=== PATIENT | male | born 1950 | race Hispanic/Latino ===

== ENCOUNTER → 2018-07-10 | Outpatient (CLI) | payer MEDICARE ==
[~2018-07-10] MED LIST: ALBUHFA IH; ASPI-1012 PO; ATOR40TA71 PO; CHOL100040 PO; DOXA2TAB2 PO; FAMO20TA8 PO; FENO54TA6 PO; FOLI0.8T22 PO; LEVO25TA54 PO; METO100T14 PO; SYMBICORT IH; TORS20TA4 PO
== END | disposition home or self-care (01) ==
LOC: SHCH 11:31
PROVIDERS: ATTEND Internal Medicine Cardiovascular Disease
DX: I50.31 Acute diastolic (congestive) heart failure (principal)
CPT/HCPCS: 93306

== ENCOUNTER → 2018-07-13 | Outpatient (CLI) | payer MEDICARE ==
[~2018-07-13] VITALS: Ht 175.3 cm; Wt 106.6 kg
[~2018-07-13] MED LIST changes: +REGADENOSON 0.4 MG/5 ML PF SYG IVP SCH
== END | disposition home or self-care (01) ==
LOC: SHCH 08:08
PROVIDERS: ATTEND Internal Medicine Cardiovascular Disease
DX: I50.31 Acute diastolic (congestive) heart failure (principal); I25.10 Atherosclerotic heart disease of native coronary artery without angina pectoris
CPT/HCPCS: 78452; 93017; 96374; A9500 ×2; J2785

== ENCOUNTER 2019-02-03 13:39 | Inpatient (IN) | payer MEDICARE ==
[~2019-02-03] VITALS: Ht 175.3 cm; Wt 95.3 kg
[~2019-02-03 13:39] MED LIST changes: -REGADENOSON 0.4 MG/5 ML PF SYG IVP SCH
[2019-02-03 14:24] LABS: APPEARANCE,URINE CLOUDY (CLEAR); BILIRUBIN,URINE NEGATIVE (NEGATIVE); COLOR,URINE YELLOW (YELLOW); GLUCOSE, URINE (UA) 250 mg/dL (NEGATIVE); KETONES,URINE NEGATIVE (NEGATIVE); LEUKOCYTE ESTERASE ,URINE NEGATIVE (NEGATIVE); NITRATE,URINE NEGATIVE (NEGATIVE); OCCULT BLOOD,URINE MODERATE (NEGATIVE); PROTEIN,URINE >=300 mg/dL (NEGATIVE); UROBILINOGEN,URINE 0.2 mg/dL (0.2-1.0)
[2019-02-03 14:30] LABS: BASOPHILS % (AUTO) 1.1 % (0.0-5.0); EOSINOPHILS % (AUTO) 2.6 % (0.0-8.0); HEMATOCRIT 41.1 % (42-54); LYMPHOCYTES % (AUTO) 14.9 % (21.0-51.0); MEAN CORPUSCULAR HEMOGLOBIN 31.5 pg (27.0-33.0); MEAN CORPUSCULAR VOLUME 95.4 fL (79-99); MONOCYTES % (AUTO) 8.5 % (3.0-13.0); NEUTROPHILS % (AUTO) 72.9 % (40.0-77.0); NUCLEATED RED BLOOD CELLS 0.1 % (0.0-0.19); PLATELET COUNT (AUTO) 180 K/uL (130-400); RED BLOOD CELL COUNT(AUTO) 4.31 MIL/uL (4.50-6.20); RED CELL DISTRIBUTION WIDTH 14.4 % (11.0-15.5); WHITE BLOOD COUNT (AUTO) 6.5 K/uL (4.8-10.8)
[2019-02-03 14:34] LABS: BACTERIA,URINE Few /HPF (None Seen)
[2019-02-03 14:35] LABS: HYALINE CASTS, URINE 26-50 /LPF (0-1 /LPF); MUCUS,URINE Few LPF (None Seen); SQUAMOUS EPITHELIAL CELL,UR Rare /HPF (0-2)
[2019-02-03 14:56] LABS: CREATININE 3.6 mg/dL (0.5-1.5); POTASSIUM 5.9 mmol/L (3.5-5.1)
[2019-02-03 15:00] LABS: ALBUMIN 1.4 g/dL (3.5-5.0); BILIRUBIN,TOTAL 0.3 mg/dL (0.2-1.0); TOTAL PROTEIN, SERUM 5.1 g/dL (6.0-8.3)
[2019-02-03] MEDS ORDERED: ALBUTEROL SULFATE 0.083% 2.5 MG/3 ML INH IH ONE (16:41)
[2019-02-03] MEDS ORDERED: FAMOTIDINE/PF 20 MG/2 ML VIAL IV ONE (18:25)
[2019-02-03] MEDS ORDERED: METOCLOPRAMIDE 5 MG TABLET PO PRN (18:30)
[2019-02-03] MEDS ORDERED: ONDANSETRON HCL 4 MG/2 ML VIAL IVP PRN (18:30)
[2019-02-03] MEDS ORDERED: GLUCAGON 1MG KIT 1 MG ML IM PRN (18:30)
[2019-02-03] MEDS ORDERED: DEXTROSE 50%-WATER 50 ML DISP.SYRIN IV PRN (18:30)
[2019-02-03] MEDS ORDERED: TEMAZEPAM 15 MG CAPSULE PO PRN (18:30)
[2019-02-03] MEDS ORDERED: SODIUM POLYSTYRENE SULFONATE 15 GM/60 ML ML ONE (20:44)
[2019-02-03] MEDS: INSULIN R PO SS1 SQ SCH (21:00)
[2019-02-03 23:00] VITALS: BP 179/97
[2019-02-04] VITALS (7 sets, daily range): BP systolic 140–177; BP diastolic 69–86
[2019-02-04] MEDS ORDERED: FUROSEMIDE 10 MG/ML 4ML VIAL ONE (01:34)
[2019-02-04 02:34] LABS: HEMATOCRIT 37.9 % (42-54); MEAN CORPUSCULAR HEMOGLOBIN 31.5 pg (27.0-33.0); MEAN CORPUSCULAR VOLUME 95.3 fL (79-99); PLATELET COUNT (AUTO) 173 K/uL (130-400); RED BLOOD CELL COUNT(AUTO) 3.98 MIL/uL (4.50-6.20); RED CELL DISTRIBUTION WIDTH 14.5 % (11.0-15.5); WHITE BLOOD COUNT (AUTO) 6.6 K/uL (4.8-10.8)
[2019-02-04 03:01] LABS: ALBUMIN 1.3 g/dL (3.5-5.0); BILIRUBIN,TOTAL 0.2 mg/dL (0.2-1.0); CREATININE 3.4 mg/dL (0.5-1.5); POTASSIUM 5.1 mmol/L (3.5-5.1); TOTAL PROTEIN, SERUM 4.7 g/dL (6.0-8.3)
[2019-02-04 03:03] LABS: B-TYPE NATRIURETIC PEPTIDE 268 pg/mL (0-100)
[2019-02-04] MEDS: INSULIN R PO SS1 SQ SCH ×4 (05:36→20:54)
[2019-02-04] MEDS ORDERED: FAMOTIDINE/PF 20 MG/2 ML VIAL IV SCH (09:00)
[2019-02-04] MEDS: FUROSEMIDE 10 MG/ML 4ML VIAL IV SCH ×2 (09:50→18:52)
--- NOTE | 2019-02-04 17:55 | NUR ---
INITIAL: Met w pt this afternoon to discuss dcp. Pt mentions that he lives w his spouse and son. Prior to admission he was independent w ambulation and requires assistance w ADLs. he has provider services 3hr/day. Pt states that he was still driving prior to admission. Per pt he feels safe and comfortable to return home at ok. CM to continue to follow and wait for Md recommendations. Addendum: 02/04/19 at 1757 by DAXA PEREYRA Amended: Links added.
[2019-02-04] MEDS ORDERED: CHOL100040 PO (21:50)
[2019-02-04] MEDS ORDERED: FOLI1TAB85 PO (21:50)
[2019-02-04] MEDS ORDERED: POTA20TA82 PO (21:50)
[2019-02-04] MEDS ORDERED: AMLO10TA7 PO (21:50)
[2019-02-04] MEDS ORDERED: HYDR-4153 PO (21:50)
[2019-02-04] MEDS ORDERED: FURO40TA5 PO (21:50)
--- NOTE | 2019-02-04 21:53 | NUR ---
MD DR NY came to see pt.
[2019-02-05] VITALS (7 sets, daily range): BP systolic 135–184; BP diastolic 67–121
[2019-02-05] MEDS: FUROSEMIDE 10 MG/ML 4ML VIAL IV SCH ×3 (04:21→18:52)
[2019-02-05 05:19] LABS: HEMATOCRIT 37.1 % (42-54); MEAN CORPUSCULAR HEMOGLOBIN 31.8 pg (27.0-33.0); MEAN CORPUSCULAR HGB CONC 33.2 g/dL (32.0-36.0); MEAN CORPUSCULAR VOLUME 95.9 fL (79-99); NUCLEATED RED BLOOD CELLS 0.1 % (0.0-0.19); PLATELET COUNT (AUTO) 160 K/uL (130-400); RED BLOOD CELL COUNT(AUTO) 3.87 MIL/uL (4.50-6.20); RED CELL DISTRIBUTION WIDTH 14.5 % (11.0-15.5); WHITE BLOOD COUNT (AUTO) 6.2 K/uL (4.8-10.8)
[2019-02-05 05:38] LABS: HEMOGLOBIN A1C 5.4 % (4.0-6.0)
[2019-02-05 05:46] LABS: ALBUMIN 1.2 g/dL (3.5-5.0); CREATININE 3.2 mg/dL (0.5-1.5); PHOSPHORUS 5.5 mg/dL (2.5-4.9); POTASSIUM 3.5 mmol/L (3.5-5.1); THYROID STIMULATING HORMONE 4.3 uIU/mL (0.36-3.74)
[2019-02-05] MEDS: INSULIN R PO SS1 SQ SCH ×4 (06:21→20:31)
[2019-02-05] MEDS: LEVOTHYROXINE 25 MCG TABLET PO SCH (06:21)
[2019-02-05] MEDS: ALBUTEROL SULFATE 0.083% 2.5 MG/3 ML INH IH SCH ×4 (06:28→23:47)
[2019-02-05] MEDS: BUDESONIDE 0.5 MG/2 ML INH IH SCH ×2 (06:28→18:51)
--- NOTE | 2019-02-05 08:00 | NUR ---
REVIEW CARE. WITH PT . HOB UP , DENIES ANY PAIN.. PT HAS HIS ARMS ,AND LEG WITH EDAMA NOTED .ELEVATED HIS ARMS AND LEG UP ON PILLOW FOR COMFORT CARE . DR GUERRERO AWARE OF HIS LABS ,BUN AND CR. LEVEL TODAY NO DIALYSIS WITH MEDICATION OF ZAROXOLYN 5 MG PO TO BE STARTED EDUCATION REGARDING MEDICATION GIVEN. . QUESTION ENCOURGE AND CALL LIGHT IN REACH .
[2019-02-05] MEDS: CHOLECALCIFEROL 1000 UNIT PO SCH (09:00)
[2019-02-05] MEDS ORDERED: SYMBICORT IH SCH (09:00)
[2019-02-05] MEDS: FENOFIBRATE 54 MG PO SCH (09:00)
[2019-02-05] MEDS ORDERED: HYDRALAZINE HCL 25 MG TABLET PO SCH (09:00)
--- NOTE | 2019-02-05 10:31 | NUR ---
TRIGGER. Pt IS A 68 YEAR OLD MALE ADMITTED SECONDARY TO ACUTE CHRONIC RENAL FAILURE. Pt WITH EDEMA AT THIS TIME. Pt TOLERATING CURRENT DIET. NO OVERT S/S OF ASPIRATION REPORTED AT THIS TIME. Addendum: 02/05/19 at 1041 by KATRINA COULTER, SPT ST Amended: Links added.
[2019-02-05] MEDS ORDERED: METOLAZONE 2.5 MG TABLET ONE (12:01)
[2019-02-05] MEDS: FAMOTIDINE 20MG TAB 20 MG TAB PO SCH (12:04)
[2019-02-05] MEDS: HYDRALAZINE HCL 25 MG TABLET PO SCH ×2 (12:04→20:30)
[2019-02-05] MEDS: ASPIRIN 325 MG TABLET PO SCH (12:04)
[2019-02-05] MEDS: METOPROLOL TARTRATE 50 MG TAB PO SCH ×3 (12:05→20:37)
[2019-02-05] MEDS: AMLODIPINE BESYLATE 5 MG TAB PO SCH (12:05)
[2019-02-05] MEDS: POTASSIUM CHLORIDE 20 MEQ ERTAB PO SCH ×2 (12:05→20:29)
[2019-02-05] MEDS: FOLIC ACID/VITAMIN B COMP W-C 1 MG CAP/TAB PO SCH (12:05)
[2019-02-05] MEDS ORDERED: METOLAZONE 2.5 MG TABLET PO SCH (13:00)
--- NOTE | 2019-02-05 16:54 | NUR ---
RD Notification Pt admitted for Acute chronic renal failure, Hx of CHF, HTN, Pt tolerating current Renal, 75gm CCD with no report of GI distress and PO intake at 100%. Recommend 30mL ProMod TID secondary to protein malnutrition. Pt LBM 02/03. Pt monitored labs: Cl 113, BUN 29, Cr 3.2, GFR 21, Ca 7.6, P 5.5, Alb 1.2. Noted Pt 2+ BLE/BUE pitting edema; Recommend 1200mL Fluid Restriction. RD to continue to monitor. Please notify RD as additional nutrition concerns arise. Thank you. Addendum: 02/05/19 at [address] RD Amended: Links added.
[2019-02-05] MEDS: DOXAZOSIN MESYLATE 2 MG TABLET PO SCH (20:30)
[2019-02-05] MEDS: ATORVASTATIN CALCIUM 40 MG TABLET PO SCH (20:30)
[2019-02-06 03:00] VITALS: BP 153/78
[2019-02-06] MEDS: FUROSEMIDE 10 MG/ML 4ML VIAL IV SCH ×2 (05:11→09:36)
[2019-02-06] MEDS: LEVOTHYROXINE 25 MCG TABLET PO SCH (05:11)
[2019-02-06 05:16] LABS: HEMATOCRIT 32.5 % (42-54); MEAN CORPUSCULAR HEMOGLOBIN 31.5 pg (27.0-33.0); MEAN CORPUSCULAR VOLUME 92.7 fL (79-99); PLATELET COUNT (AUTO) 164 K/uL (130-400); RED BLOOD CELL COUNT(AUTO) 3.51 MIL/uL (4.50-6.20); RED CELL DISTRIBUTION WIDTH 14.4 % (11.0-15.5); WHITE BLOOD COUNT (AUTO) 5.6 K/uL (4.8-10.8)
[2019-02-06 05:25] LABS: CREATININE 3.3 mg/dL (0.5-1.5); POTASSIUM 3.6 mmol/L (3.5-5.1)
[2019-02-06 05:42] LABS: ALBUMIN 1.1 g/dL (3.5-5.0); BILIRUBIN,DIRECT 0.1 mg/dL (0.0-0.3); BILIRUBIN,TOTAL 0.3 mg/dL (0.2-1.0); TOTAL PROTEIN, SERUM 4.2 g/dL (6.0-8.3)
[2019-02-06 05:43] LABS: BASOPHILS % (MANUAL) 2 % (0-2); EOSINOPHILS % (MANUAL) 6 % (1-6); LYMPHOCYTES % (MANUAL) 14 % (22-44); MAN.DIFF COMMENT-IMPRESSION MANUAL DIFFERENTIAL; MONOCYTES % (MANUAL) 14 % (2-9); SEGMENTED NEUTROPHILS % 64 % (40-70)
[2019-02-06] MEDS: INSULIN R PO SS1 SQ SCH ×4 (06:07→20:40)
[2019-02-06] MEDS: ALBUTEROL SULFATE 0.083% 2.5 MG/3 ML INH IH SCH ×4 (06:18→22:55)
--- NOTE | 2019-02-06 06:26 | NUR ---
EDEMA Pt cont with pitting edema to bilateral upper and lower extremeties.Denies pain or sob.
[2019-02-06] MEDS: BUDESONIDE 0.5 MG/2 ML INH IH SCH ×2 (06:32→18:08)
[2019-02-06 07:00] VITALS: BP 150/61
[2019-02-06] MEDS: ASPIRIN 325 MG TABLET PO SCH (07:58)
[2019-02-06] MEDS: POTASSIUM CHLORIDE 20 MEQ ERTAB PO SCH ×2 (07:59→20:37)
[2019-02-06] MEDS: METOPROLOL TARTRATE 50 MG TAB PO SCH ×3 (07:59→20:47)
[2019-02-06] MEDS: METOLAZONE 2.5 MG TABLET PO SCH (07:59)
[2019-02-06] MEDS: FAMOTIDINE 20MG TAB 20 MG TAB PO SCH (08:00)
[2019-02-06] MEDS: FOLIC ACID/VITAMIN B COMP W-C 1 MG CAP/TAB PO SCH (08:07)
[2019-02-06] MEDS: CHOLECALCIFEROL 1000 UNIT PO SCH (08:07)
[2019-02-06] MEDS: AMLODIPINE BESYLATE 5 MG TAB PO SCH (08:07)
[2019-02-06] MEDS: FENOFIBRATE 54 MG PO SCH (08:07)
[2019-02-06] MEDS: HYDRALAZINE HCL 25 MG TABLET PO SCH ×3 (08:07→20:37)
[2019-02-06] MEDS ORDERED: METOLAZONE 2.5 MG TABLET PO SCH (09:00)
[2019-02-06 11:00] VITALS: BP 155/70
[2019-02-06] MEDS ORDERED: PHARMACY COMMUNICATION MISC SCH (11:15)
[2019-02-06] MEDS ORDERED: COMPOUND IV MISC 1 EACH IVSOLN MISC PRN (11:30)
--- NOTE | 2019-02-06 11:38 | NUR ---
Reviewed labs, treatment plan and Murguia's request for strict Intake and output and Bumex drip with Miya Fernandez NP for benchmark. Received verbal order for spaulding catheter placement for accurate intake and output.
[2019-02-06] MEDS: BUMETANIDE 0.25 MG/ML 10 ML 40 ML IV SCH ×2 (12:34→19:12)
[2019-02-06 16:00] VITALS: BP 148/81
--- NOTE | 2019-02-06 17:32 | NUR ---
Dr. Murguia contacted to clarify orders for Lasix, Zaroxlyn and Bumex drip. Per Dr. Murguia, discontinue Lasix, continue with Zaroxlyn and Bumex drip at 1 mg/hr.
[2019-02-06 19:00] VITALS: BP 142/73
[2019-02-06] MEDS: ATORVASTATIN CALCIUM 40 MG TABLET PO SCH (20:36)
[2019-02-06] MEDS: DOXAZOSIN MESYLATE 2 MG TABLET PO SCH (20:37)
[2019-02-06 23:00] VITALS: BP 151/87
[2019-02-07] VITALS (7 sets, daily range): BP systolic 127–145; BP diastolic 72–83
--- NOTE | 2019-02-07 02:05 | NUR ---
DIURESE Pt voiding per urinal,cont on Bumex drip,coy well.Swelling is less to both arms and legs.Denies sob.
--- NOTE | 2019-02-07 04:12 | NUR ---
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
[2019-02-07 04:34] LABS: BASOPHILS % (AUTO) 0.8 % (0.0-5.0); EOSINOPHILS % (AUTO) 9.6 % (0.0-8.0); HEMATOCRIT 34.4 % (42-54); LYMPHOCYTES % (AUTO) 18.3 % (21.0-51.0); MEAN CORPUSCULAR HEMOGLOBIN 31.8 pg (27.0-33.0); MEAN CORPUSCULAR VOLUME 93.4 fL (79-99); MONOCYTES % (AUTO) 12.9 % (3.0-13.0); NEUTROPHILS % (AUTO) 58.4 % (40.0-77.0); PLATELET COUNT (AUTO) 153 K/uL (130-400); RED BLOOD CELL COUNT(AUTO) 3.69 MIL/uL (4.50-6.20); RED CELL DISTRIBUTION WIDTH 14.4 % (11.0-15.5); WHITE BLOOD COUNT (AUTO) 5.9 K/uL (4.8-10.8)
--- NOTE | 2019-02-07 04:41 | NUR ---
INSPECTOR AND UNLOADER Apple Romano Derrick Worker called back,she gave order for Tylenol.
[2019-02-07 04:44] LABS: CREATININE 3.2 mg/dL (0.5-1.5); POTASSIUM 3.1 mmol/L (3.5-5.1)
[2019-02-07] MEDS ORDERED: ACETAMINOPHEN 325 MG TAB PO PRN (04:45)
[2019-02-07] MEDS ORDERED: BUDESONIDE 0.5 MG/2 ML INH IH ONE (05:56)
[2019-02-07] MEDS ORDERED: IPRATROPIUM/ALBUTEROL SULFATE 3 ML SOLUTION IH ONE (05:56)
[2019-02-07] MEDS: ALBUTEROL SULFATE 0.083% 2.5 MG/3 ML INH IH SCH ×4 (06:08→23:46)
[2019-02-07] MEDS: BUDESONIDE 0.5 MG/2 ML INH IH SCH ×2 (06:17→19:17)
[2019-02-07] MEDS: LEVOTHYROXINE 25 MCG TABLET PO SCH (06:37)
[2019-02-07] MEDS: INSULIN R PO SS1 SQ SCH ×4 (06:38→21:00)
[2019-02-07] MEDS ORDERED: POTASSIUM CHLORIDE 10MEQ/100ML 10 MEQ/100 ML ML IV SCH (08:30)
[2019-02-07] MEDS: CHOLECALCIFEROL 1000 UNIT PO SCH (09:00)
[2019-02-07] MEDS: FENOFIBRATE 54 MG PO SCH (09:00)
[2019-02-07] MEDS: POTASSIUM CHLORIDE 20 MEQ ERTAB PO SCH ×2 (09:54→21:00)
[2019-02-07] MEDS: FOLIC ACID/VITAMIN B COMP W-C 1 MG CAP/TAB PO SCH (09:54)
[2019-02-07] MEDS: ASPIRIN 325 MG TABLET PO SCH (09:55)
[2019-02-07] MEDS: METOLAZONE 2.5 MG TABLET PO SCH (09:55)
[2019-02-07] MEDS: AMLODIPINE BESYLATE 5 MG TAB PO SCH (09:55)
[2019-02-07] MEDS: HYDRALAZINE HCL 25 MG TABLET PO SCH ×3 (09:55→22:14)
[2019-02-07] MEDS: FAMOTIDINE 20MG TAB 20 MG TAB PO SCH (09:56)
[2019-02-07] MEDS: METOPROLOL TARTRATE 50 MG TAB PO SCH ×2 (09:56→22:14)
[2019-02-07] MEDS ORDERED: SODIUM CHLORIDE 0.9% 0 ML IV ONE (15:34)
--- NOTE | 2019-02-07 16:49 | NUR ---
CM Note: [facility] pending ins auth and acceptance CM met with pt and spouse discussed MD recommendations for placement, pt and spouse agreeable. Pt signed JUDY for [facility]. Faxed order, clinicals, PT, and [facility], confirmation received. Spoke to Charissa will come eval pt. Pt pending ins auth and acceptance. EMS form filled out, pending to be faxed w/current date, primary nurse to call [facility] once pt ready to DC. Primary nurse aware. CM to cont to follow up.
[2019-02-07] MEDS ORDERED: POTASSIUM CHLORIDE 10% ELIXIR 20 MEQ/15 ML UDCUP PO PRN (17:15)
[2019-02-07] MEDS ORDERED: LIDOCAINE HCL-MPF 1% 2ML VIAL IV PRN (17:15)
[2019-02-07] MEDS ORDERED: POTASSIUM CHLORIDE 20MEQ/100ML 100 ML IV PRN (17:15)
[2019-02-07] MEDS: BUMETANIDE 0.25 MG/ML 10 ML 40 ML IV SCH (17:32)
[2019-02-07] MEDS: POTASSIUM CHLORIDE 20 MEQ ERTAB PO PRN ×3 (18:33→22:13)
[2019-02-07] MEDS: DOXAZOSIN MESYLATE 2 MG TABLET PO SCH (22:13)
[2019-02-07] MEDS: ATORVASTATIN CALCIUM 40 MG TABLET PO SCH (22:13)
[2019-02-08] MEDS: BUMETANIDE 0.25 MG/ML 10 ML 40 ML IV SCH ×3 (02:22→22:05)
[2019-02-08 04:00] VITALS: BP 152/70
[2019-02-08 04:54] LABS: EOSINOPHILS % (AUTO) 8.9 % (0.0-8.0); HEMATOCRIT 35.6 % (42-54); LYMPHOCYTES % (AUTO) 15.6 % (21.0-51.0); MEAN CORPUSCULAR HEMOGLOBIN 31.7 pg (27.0-33.0); MEAN CORPUSCULAR HGB CONC 33.9 g/dL (32.0-36.0); MEAN CORPUSCULAR VOLUME 93.4 fL (79-99); MONOCYTES % (AUTO) 13.3 % (3.0-13.0); NEUTROPHILS % (AUTO) 61.2 % (40.0-77.0); PLATELET COUNT (AUTO) 167 K/uL (130-400); RED BLOOD CELL COUNT(AUTO) 3.81 MIL/uL (4.50-6.20); RED CELL DISTRIBUTION WIDTH 14.4 % (11.0-15.5); WHITE BLOOD COUNT (AUTO) 6.1 K/uL (4.8-10.8)
[2019-02-08 05:07] LABS: CREATININE 3.3 mg/dL (0.5-1.5); POTASSIUM 3.1 mmol/L (3.5-5.1)
[2019-02-08] MEDS: POTASSIUM CHLORIDE 20 MEQ ERTAB PO PRN (05:41)
[2019-02-08] MEDS: ALBUTEROL SULFATE 0.083% 2.5 MG/3 ML INH IH SCH ×4 (06:20→23:23)
[2019-02-08] MEDS: BUDESONIDE 0.5 MG/2 ML INH IH SCH ×2 (06:29→18:27)
[2019-02-08] MEDS: LEVOTHYROXINE 25 MCG TABLET PO SCH (06:53)
[2019-02-08 07:00] VITALS: BP 121/77
[2019-02-08] MEDS: INSULIN R PO SS1 SQ SCH ×4 (07:30→21:00)
[2019-02-08] MEDS: FENOFIBRATE 54 MG PO SCH (09:00)
[2019-02-08] MEDS: CHOLECALCIFEROL 1000 UNIT PO SCH (09:00)
--- NOTE | 2019-02-08 09:30 | NUR ---
DR. NY IN TO SEE PT. WILL CONTINUE BUMEX DRIP AT SAME RATE.
[2019-02-08] MEDS: METOLAZONE 2.5 MG TABLET PO SCH (09:49)
[2019-02-08] MEDS: FAMOTIDINE 20MG TAB 20 MG TAB PO SCH (09:49)
[2019-02-08] MEDS: FOLIC ACID/VITAMIN B COMP W-C 1 MG CAP/TAB PO SCH (09:49)
[2019-02-08] MEDS: ASPIRIN 325 MG TABLET PO SCH (09:49)
[2019-02-08] MEDS: METOPROLOL TARTRATE 50 MG TAB PO SCH ×2 (09:50→22:04)
[2019-02-08] MEDS: AMLODIPINE BESYLATE 5 MG TAB PO SCH (09:50)
[2019-02-08] MEDS: HYDRALAZINE HCL 25 MG TABLET PO SCH ×3 (09:51→21:00)
[2019-02-08] MEDS: POTASSIUM CHLORIDE 20 MEQ ERTAB PO SCH ×3 (09:51→22:03)
[2019-02-08 11:00] VITALS: BP 116/70
--- NOTE | 2019-02-08 14:50 | NUR ---
RD Follow Up Note Pt tolerating Current Diet order with no report of GI distress and Great PO at 100%. Noted Pt remains with moderate fluid retention (BLE 2+ pitting edema/BUE 3+ pitting edema) on 1200mL Fluid restriction as per EMR. and low K+ levels, receiving KCl supplementation. Pt LBM 02/07/19. Pt monitored labs: K 3.1, BUN 32, Cr 3.3, GFR 20, Ca 7/9. Alb 1.1. RD to continue to monitor. RD to continue to monitor. Please notify RD as nutritional concerns arise. Thank you. Addendum: 02/08/19 at [address] Amended: Links added.
[2019-02-08 16:00] VITALS: BP 154/70
--- NOTE | 2019-02-08 18:00 | NUR ---
SITTING IN CHAIR, FEELING BETTER, STATES EDEMA HAS DECREASED A LOT. PLAN IS TO BE DISCHARGED TO [facility] [place].
[2019-02-08 20:00] VITALS: BP 153/84
[2019-02-08] MEDS: DOXAZOSIN MESYLATE 2 MG TABLET PO SCH (22:03)
[2019-02-08] MEDS: ATORVASTATIN CALCIUM 40 MG TABLET PO SCH (22:04)
--- NOTE | 2019-02-08 23:58 | NUR ---
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
[2019-02-09] VITALS (7 sets, daily range): BP systolic 123–171; BP diastolic 65–86
--- NOTE | 2019-02-09 00:12 | NUR ---
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
[2019-02-09 05:03] LABS: BASOPHILS % (AUTO) 0.8 % (0.0-5.0); EOSINOPHILS % (AUTO) 8.9 % (0.0-8.0); HEMATOCRIT 33.6 % (42-54); LYMPHOCYTES % (AUTO) 19.3 % (21.0-51.0); MEAN CORPUSCULAR HEMOGLOBIN 31.2 pg (27.0-33.0); MEAN CORPUSCULAR HGB CONC 33.8 g/dL (32.0-36.0); MEAN CORPUSCULAR VOLUME 92.4 fL (79-99); MONOCYTES % (AUTO) 15.1 % (3.0-13.0); NEUTROPHILS % (AUTO) 55.9 % (40.0-77.0); PLATELET COUNT (AUTO) 174 K/uL (130-400); RED BLOOD CELL COUNT(AUTO) 3.63 MIL/uL (4.50-6.20); RED CELL DISTRIBUTION WIDTH 14.5 % (11.0-15.5); WHITE BLOOD COUNT (AUTO) 5.6 K/uL (4.8-10.8)
[2019-02-09 05:31] LABS: ALBUMIN 1.1 g/dL (3.5-5.0); CREATININE 3.6 mg/dL (0.5-1.5); PHOSPHORUS 5.5 mg/dL (2.5-4.9); POTASSIUM 3.2 mmol/L (3.5-5.1)
[2019-02-09] MEDS: BUDESONIDE 0.5 MG/2 ML INH IH SCH ×2 (06:15→18:16)
[2019-02-09] MEDS: ALBUTEROL SULFATE 0.083% 2.5 MG/3 ML INH IH SCH ×4 (06:15→23:22)
[2019-02-09] MEDS: LEVOTHYROXINE 25 MCG TABLET PO SCH (06:16)
[2019-02-09] MEDS: INSULIN R PO SS1 SQ SCH ×4 (06:16→21:00)
[2019-02-09] MEDS: POTASSIUM CHLORIDE 20 MEQ ERTAB PO SCH ×3 (09:00→23:21)
[2019-02-09] MEDS: CHOLECALCIFEROL 1000 UNIT PO SCH (09:00)
[2019-02-09] MEDS: FENOFIBRATE 54 MG PO SCH (09:00)
[2019-02-09] MEDS: AMLODIPINE BESYLATE 5 MG TAB PO SCH (10:38)
[2019-02-09] MEDS: METOLAZONE 2.5 MG TABLET PO SCH (10:39)
[2019-02-09] MEDS: FAMOTIDINE 20MG TAB 20 MG TAB PO SCH (10:39)
[2019-02-09] MEDS: HYDRALAZINE HCL 25 MG TABLET PO SCH ×3 (10:40→23:21)
[2019-02-09] MEDS: ASPIRIN 325 MG TABLET PO SCH (10:40)
[2019-02-09] MEDS: FOLIC ACID/VITAMIN B COMP W-C 1 MG CAP/TAB PO SCH (10:40)
[2019-02-09] MEDS ORDERED: POTASSIUM CHLORIDE 10MEQ/100ML 10 MEQ/100 ML ML IV SCH (11:30)
--- NOTE | 2019-02-09 15:49 | NUR ---
HOSPICE Sw contacted by CM. Pt has now agreed to dialysis after Dr Murguia spoke to him. Per CM, no need to see pt regarding hospice
--- NOTE | 2019-02-09 16:00 | NUR ---
cm note received call from judith that [facility] approved, however, pt with new orders for HD
[2019-02-09] MEDS: ATORVASTATIN CALCIUM 40 MG TABLET PO SCH (23:21)
[2019-02-09] MEDS: DOXAZOSIN MESYLATE 2 MG TABLET PO SCH (23:21)
[2019-02-10] VITALS (13 sets, daily range): BP systolic 112–179; BP diastolic 52–93
[2019-02-10 05:36] LABS: EOSINOPHILS % (AUTO) 9.7 % (0.0-8.0); HEMATOCRIT 36.3 % (42-54); LYMPHOCYTES % (AUTO) 20.1 % (21.0-51.0); MEAN CORPUSCULAR HEMOGLOBIN 31.4 pg (27.0-33.0); MEAN CORPUSCULAR HGB CONC 33.9 g/dL (32.0-36.0); MEAN CORPUSCULAR VOLUME 92.5 fL (79-99); MONOCYTES % (AUTO) 12.8 % (3.0-13.0); NEUTROPHILS % (AUTO) 56.4 % (40.0-77.0); PLATELET COUNT (AUTO) 209 K/uL (130-400); RED BLOOD CELL COUNT(AUTO) 3.93 MIL/uL (4.50-6.20); RED CELL DISTRIBUTION WIDTH 14.6 % (11.0-15.5)
[2019-02-10 05:41] LABS: PARTIAL THROMBOPLASTIN TIME 25.3 SEC (26.3-35.5); PROTHROMBIN TIME 10.5 SEC (9.6-11.6)
[2019-02-10 05:46] LABS: ALBUMIN 1.3 g/dL (3.5-5.0); CREATININE 3.4 mg/dL (0.5-1.5); POTASSIUM 3.1 mmol/L (3.5-5.1)
[2019-02-10] MEDS: INSULIN R PO SS1 SQ SCH ×4 (05:58→21:00)
[2019-02-10] MEDS: LEVOTHYROXINE 25 MCG TABLET PO SCH (05:59)
[2019-02-10] MEDS: ALBUTEROL SULFATE 0.083% 2.5 MG/3 ML INH IH SCH ×4 (06:19→23:20)
[2019-02-10] MEDS: BUDESONIDE 0.5 MG/2 ML INH IH SCH ×2 (06:19→18:03)
[2019-02-10] MEDS ORDERED: LIDOCAINE HCL 1% MDV 50ML VIAL ONE (08:05)
[2019-02-10] MEDS: POTASSIUM CHLORIDE 20 MEQ ERTAB PO SCH ×2 (09:00→23:07)
[2019-02-10] MEDS: AMLODIPINE BESYLATE 5 MG TAB PO SCH (09:00)
[2019-02-10] MEDS: CHOLECALCIFEROL 1000 UNIT PO SCH (09:00)
[2019-02-10] MEDS: HYDRALAZINE HCL 25 MG TABLET PO SCH ×3 (09:00→23:08)
[2019-02-10] MEDS: FENOFIBRATE 54 MG PO SCH (09:00)
--- NOTE | 2019-02-10 09:30 | NUR ---
PT S/P RIGHT PERMACATH PLACEMENT BY IR/CATHLAB. NO BLEEDING, PENDING DIALYSIS. DIALYSIS TEAM AWARE.
[2019-02-10] MEDS: FOLIC ACID/VITAMIN B COMP W-C 1 MG CAP/TAB PO SCH (10:48)
[2019-02-10] MEDS: ASPIRIN 325 MG TABLET PO SCH (10:48)
[2019-02-10] MEDS: FAMOTIDINE 20MG TAB 20 MG TAB PO SCH (10:48)
[2019-02-10] MEDS: METOLAZONE 2.5 MG TABLET PO SCH (10:48)
[2019-02-10] MEDS ORDERED: NITROGLYCERIN 0.4 MG SL TAB SL PRN (18:15)
[2019-02-10] MEDS ORDERED: 0.9% SODIUM CHLORIDE 1000 ML IV BAG IV PRN (18:15)
[2019-02-10] MEDS ORDERED: ACETAMINOPHEN 325 MG TAB PO PRN (18:15)
[2019-02-10] MEDS ORDERED: SODIUM CHLORIDE 0.9% 1000ML 1,000 ML IV PRN (18:15)
[2019-02-10] MEDS: DOXAZOSIN MESYLATE 2 MG TABLET PO SCH (23:06)
[2019-02-10] MEDS: ATORVASTATIN CALCIUM 40 MG TABLET PO SCH (23:07)
[2019-02-11 03:00] VITALS: BP 133/74
[2019-02-11 05:39] LABS: CREATININE 2.7 mg/dL (0.5-1.5); POTASSIUM 3.1 mmol/L (3.5-5.1)
[2019-02-11 05:49] LABS: BASOPHILS % (AUTO) 0.9 % (0.0-5.0); HEMATOCRIT 31.5 % (42-54); LYMPHOCYTES % (AUTO) 18.5 % (21.0-51.0); MEAN CORPUSCULAR HEMOGLOBIN 31.6 pg (27.0-33.0); MEAN CORPUSCULAR HGB CONC 34.2 g/dL (32.0-36.0); MEAN CORPUSCULAR VOLUME 92.5 fL (79-99); MONOCYTES % (AUTO) 17.3 % (3.0-13.0); NEUTROPHILS % (AUTO) 54.3 % (40.0-77.0); PLATELET COUNT (AUTO) 159 K/uL (130-400); RED BLOOD CELL COUNT(AUTO) 3.41 MIL/uL (4.50-6.20); RED CELL DISTRIBUTION WIDTH 14.9 % (11.0-15.5)
[2019-02-11] MEDS: INSULIN R PO SS1 SQ SCH ×3 (06:47→20:42)
[2019-02-11] MEDS: ALBUTEROL SULFATE 0.083% 2.5 MG/3 ML INH IH SCH ×4 (06:53→23:04)
[2019-02-11] MEDS: BUDESONIDE 0.5 MG/2 ML INH IH SCH ×2 (06:53→18:15)
[2019-02-11] MEDS: LEVOTHYROXINE 25 MCG TABLET PO SCH (07:57)
[2019-02-11 08:00] VITALS: BP 125/79
[2019-02-11] MEDS: FENOFIBRATE 54 MG PO SCH (09:00)
[2019-02-11] MEDS: CHOLECALCIFEROL 1000 UNIT PO SCH (09:00)
[2019-02-11] MEDS: HYDRALAZINE HCL 25 MG TABLET PO SCH ×3 (09:50→20:44)
[2019-02-11] MEDS: FAMOTIDINE 20MG TAB 20 MG TAB PO SCH (09:51)
[2019-02-11] MEDS: METOLAZONE 2.5 MG TABLET PO SCH (09:51)
[2019-02-11] MEDS: ASPIRIN 325 MG TABLET PO SCH (09:51)
[2019-02-11] MEDS: FOLIC ACID/VITAMIN B COMP W-C 1 MG CAP/TAB PO SCH (09:51)
[2019-02-11] MEDS: POTASSIUM CHLORIDE 20 MEQ ERTAB PO SCH ×2 (09:51→20:45)
[2019-02-11] MEDS: AMLODIPINE BESYLATE 5 MG TAB PO SCH (09:52)
[2019-02-11 12:00] VITALS: BP 131/69
[2019-02-11 16:00] VITALS: BP 152/79
[2019-02-11 16:27] LABS: HEMATOCRIT 34.3 % (42-54)
[2019-02-11 16:45] LABS: ALBUMIN 1.3 g/dL (3.5-5.0); CREATININE 2.9 mg/dL (0.5-1.5)
[2019-02-11 16:46] LABS: HEMOGLOBIN A1C 5.7 % (4.0-6.0)
[2019-02-11 17:11] LABS: % IRON SATURATION 29.8 % (30-44)
--- NOTE | 2019-02-11 18:55 | NUR ---
[facility]: Discussed w pt and spouse order for outpt HD @ [facility]. Pt in agreement JUDY/PC consent signed. CM to f/u w referral pending lab and pending HD tx's.
[2019-02-11 19:00] VITALS: BP 170/83
[2019-02-11] MEDS: DOXAZOSIN MESYLATE 2 MG TABLET PO SCH (20:44)
[2019-02-11] MEDS: ATORVASTATIN CALCIUM 40 MG TABLET PO SCH (20:45)
[2019-02-11 23:00] VITALS: BP 150/85
[2019-02-12 03:00] VITALS: BP 164/89
[2019-02-12 05:38] LABS: BASOPHILS % (AUTO) 1.1 % (0.0-5.0); EOSINOPHILS % (AUTO) 13.2 % (0.0-8.0); HEMATOCRIT 31.2 % (42-54); LYMPHOCYTES % (AUTO) 16.3 % (21.0-51.0); MEAN CORPUSCULAR HEMOGLOBIN 31.9 pg (27.0-33.0); MEAN CORPUSCULAR HGB CONC 34.3 g/dL (32.0-36.0); MEAN CORPUSCULAR VOLUME 93.1 fL (79-99); MONOCYTES % (AUTO) 14.1 % (3.0-13.0); NEUTROPHILS % (AUTO) 55.3 % (40.0-77.0); PLATELET COUNT (AUTO) 144 K/uL (130-400); RED BLOOD CELL COUNT(AUTO) 3.35 MIL/uL (4.50-6.20); RED CELL DISTRIBUTION WIDTH 14.3 % (11.0-15.5); WHITE BLOOD COUNT (AUTO) 4.9 K/uL (4.8-10.8)
[2019-02-12 06:00] LABS: CREATININE 2.9 mg/dL (0.5-1.5); POTASSIUM 3.1 mmol/L (3.5-5.1)
[2019-02-12] MEDS: LEVOTHYROXINE 25 MCG TABLET PO SCH (06:21)
[2019-02-12] MEDS: INSULIN R PO SS1 SQ SCH ×4 (06:21→21:00)
[2019-02-12] MEDS: BUDESONIDE 0.5 MG/2 ML INH IH SCH ×2 (06:29→18:23)
[2019-02-12] MEDS: ALBUTEROL SULFATE 0.083% 2.5 MG/3 ML INH IH SCH ×4 (06:29→23:15)
[2019-02-12 08:00] VITALS: BP 175/86
[2019-02-12] MEDS: FAMOTIDINE 20MG TAB 20 MG TAB PO SCH (08:35)
[2019-02-12] MEDS: FOLIC ACID/VITAMIN B COMP W-C 1 MG CAP/TAB PO SCH (08:35)
[2019-02-12] MEDS: ASPIRIN 325 MG TABLET PO SCH (08:35)
[2019-02-12] MEDS: METOLAZONE 2.5 MG TABLET PO SCH (08:35)
[2019-02-12] MEDS: POTASSIUM CHLORIDE 20 MEQ ERTAB PO SCH ×2 (08:36→21:55)
[2019-02-12] MEDS: CHOLECALCIFEROL 1000 UNIT PO SCH (08:37)
[2019-02-12] MEDS: FENOFIBRATE 54 MG PO SCH (08:37)
[2019-02-12] MEDS: HYDRALAZINE HCL 25 MG TABLET PO SCH ×3 (09:00→21:56)
[2019-02-12] MEDS: AMLODIPINE BESYLATE 5 MG TAB PO SCH (09:00)
[2019-02-12 11:58] VITALS: BP 148/93
[2019-02-12] MEDS: HEPARIN SODIUM 5000UNIT/ML 1ML VIAL IJ PRN (14:51)
--- NOTE | 2019-02-12 15:27 | NUR ---
RD Follow up note Pt tolerating Renal Dialysis Diet Order, 1200mL Fluid restriction. Noted improved Edema as per EMR, Alb 1.3. Recommend to add 30ml ProMod TID. Pt LBM 02/12/19. Pt monitored labs: K 3.1, BUN 30, Cr 2.9, GFR 23, Ca 7.2, Fe 40, %Sat 29, Ferritin 573,Alb 1.3. RD to continue to monitor. Please notify RD as additional nutrition concerns arise. Thank you. Addendum: 02/12/19 at [address] Amended: Links added.
[2019-02-12 16:00] VITALS: BP_SYST 160; BP_SYST 166; BP_DIAS 106; BP_DIAS 67
--- NOTE | 2019-02-12 16:58 | NUR ---
jeffy note faxed request to setup OP HD at [facility], faxed info to admissions mainline [phone]. spoke to lamar at admissions and states has received info, and will send for review and approval, will let jeffy knowjoseph chair is obtained, informed request is for [facility], and plan for pt to go to [facility].
--- NOTE | 2019-02-12 17:06 | NUR ---
cm note spoke to Charissa at [facility], states auth for snf is still good until tuesday or tuesday, verify with her first because this pt has a long auth due to type of insurance, and should still be valid approval for the next few days.
[2019-02-12 19:00] VITALS: BP 158/99
[2019-02-12] MEDS: ATORVASTATIN CALCIUM 40 MG TABLET PO SCH (21:55)
[2019-02-12] MEDS: DOXAZOSIN MESYLATE 2 MG TABLET PO SCH (21:56)
[2019-02-12 23:00] VITALS: BP 132/68
[2019-02-13] VITALS (8 sets, daily range): BP systolic 122–189; BP diastolic 73–103
[2019-02-13] MEDS: INSULIN R PO SS1 SQ SCH ×4 (06:26→21:00)
[2019-02-13] MEDS: LEVOTHYROXINE 25 MCG TABLET PO SCH (06:26)
[2019-02-13 06:29] LABS: EOSINOPHILS % (AUTO) 12.4 % (0.0-8.0); HEMATOCRIT 31.6 % (42-54); LYMPHOCYTES % (AUTO) 16.4 % (21.0-51.0); MEAN CORPUSCULAR HEMOGLOBIN 31.5 pg (27.0-33.0); MEAN CORPUSCULAR VOLUME 92.6 fL (79-99); MONOCYTES % (AUTO) 14.4 % (3.0-13.0); NEUTROPHILS % (AUTO) 55.8 % (40.0-77.0); PLATELET COUNT (AUTO) 147 K/uL (130-400); RED BLOOD CELL COUNT(AUTO) 3.41 MIL/uL (4.50-6.20); RED CELL DISTRIBUTION WIDTH 14.3 % (11.0-15.5)
[2019-02-13 06:45] LABS: CREATININE 2.7 mg/dL (0.5-1.5); MAGNESIUM 1.9 mg/dL (1.80-2.40); POTASSIUM 3.4 mmol/L (3.5-5.1)
[2019-02-13] MEDS: ALBUTEROL SULFATE 0.083% 2.5 MG/3 ML INH IH SCH ×4 (06:51→23:14)
[2019-02-13] MEDS: BUDESONIDE 0.5 MG/2 ML INH IH SCH ×2 (07:01→18:20)
[2019-02-13 08:12] LABS: HEPATITIS Bs ANTIGEN SCREEN P Negative (Negative)
[2019-02-13] MEDS: METOLAZONE 2.5 MG TABLET PO SCH (08:59)
[2019-02-13] MEDS: ASPIRIN 325 MG TABLET PO SCH (09:00)
[2019-02-13] MEDS: FAMOTIDINE 20MG TAB 20 MG TAB PO SCH (09:00)
[2019-02-13] MEDS: FENOFIBRATE 54 MG PO SCH (09:00)
[2019-02-13] MEDS: FOLIC ACID/VITAMIN B COMP W-C 1 MG CAP/TAB PO SCH (09:00)
[2019-02-13] MEDS: AMLODIPINE BESYLATE 5 MG TAB PO SCH (09:00)
[2019-02-13] MEDS: HYDRALAZINE HCL 25 MG TABLET PO SCH ×3 (09:00→23:31)
[2019-02-13] MEDS: POTASSIUM CHLORIDE 20 MEQ ERTAB PO SCH ×2 (09:01→23:33)
[2019-02-13] MEDS: CHOLECALCIFEROL 1000 UNIT PO SCH (09:02)
--- NOTE | 2019-02-13 14:00 | NUR ---
DOSE OFV APRESOLINE 50 MG PO NOT GIVEN PENDING THE DIALSIS TX. HR OF 89, B/P OF 130/78
--- NOTE | 2019-02-13 16:37 | NUR ---
CM Note: [facility] auth good until . CM spoke to Charissa ramirez/Jan[facility], stated auth good up to , will need reauth after . Aware pt pending approval and chair time for [facility]. Primary nurse aware. CM to cont to follow up.
--- NOTE | 2019-02-13 16:38 | NUR ---
LARRY Note: [facility] pending ins auth and chair time. Spoke to Moira Olvera, pending still pending ins auth at this time. Primary nurse aware. CM to cont to follow up.
[2019-02-13] MEDS: HEPARIN SODIUM 5000UNIT/ML 1ML VIAL IJ PRN (20:06)
[2019-02-13] MEDS: DOXAZOSIN MESYLATE 2 MG TABLET PO SCH (23:31)
[2019-02-13] MEDS: ATORVASTATIN CALCIUM 40 MG TABLET PO SCH (23:32)
[2019-02-14 03:56] VITALS: BP 148/63
[2019-02-14 04:52] LABS: HEMATOCRIT 31.4 % (42-54); MEAN CORPUSCULAR HEMOGLOBIN 31.8 pg (27.0-33.0); MEAN CORPUSCULAR HGB CONC 34.2 g/dL (32.0-36.0); MEAN CORPUSCULAR VOLUME 92.8 fL (79-99); NUCLEATED RED BLOOD CELLS 0.1 % (0.0-0.19); PLATELET COUNT (AUTO) 122 K/uL (130-400); RED BLOOD CELL COUNT(AUTO) 3.38 MIL/uL (4.50-6.20); RED CELL DISTRIBUTION WIDTH 14.3 % (11.0-15.5); WHITE BLOOD COUNT (AUTO) 5.1 K/uL (4.8-10.8)
[2019-02-14 05:04] LABS: CREATININE 2.3 mg/dL (0.5-1.5); POTASSIUM 3.4 mmol/L (3.5-5.1)
[2019-02-14] MEDS: INSULIN R PO SS1 SQ SCH ×4 (06:26→21:00)
[2019-02-14] MEDS: ALBUTEROL SULFATE 0.083% 2.5 MG/3 ML INH IH SCH ×3 (06:53→18:33)
[2019-02-14] MEDS: BUDESONIDE 0.5 MG/2 ML INH IH SCH ×2 (07:02→18:33)
[2019-02-14] MEDS: LEVOTHYROXINE 25 MCG TABLET PO SCH (07:43)
[2019-02-14 08:34] VITALS: BP 170/97
[2019-02-14] MEDS: FOLIC ACID/VITAMIN B COMP W-C 1 MG CAP/TAB PO SCH (08:43)
[2019-02-14] MEDS: HYDRALAZINE HCL 25 MG TABLET PO SCH ×3 (08:44→21:23)
[2019-02-14] MEDS: ASPIRIN 325 MG TABLET PO SCH (08:44)
[2019-02-14] MEDS: POTASSIUM CHLORIDE 20 MEQ ERTAB PO SCH ×2 (08:44→21:23)
[2019-02-14] MEDS: FAMOTIDINE 20MG TAB 20 MG TAB PO SCH (08:44)
[2019-02-14] MEDS: METOLAZONE 2.5 MG TABLET PO SCH (08:44)
[2019-02-14] MEDS: AMLODIPINE BESYLATE 5 MG TAB PO SCH (08:44)
[2019-02-14] MEDS: CHOLECALCIFEROL 1000 UNIT PO SCH (08:45)
[2019-02-14] MEDS: FENOFIBRATE 54 MG PO SCH (08:45)
--- NOTE | 2019-02-14 10:26 | NUR ---
[facility] NOTE PER TAMMIE WITH MART[facility], HE WILL CALL [facility] TO CONFIRM THERE IS NOT PENDING PAPERWORK THEN WILL GIVE ME A RETURN CALL WITH [facility] CHAIR AND TIME.INFORMED TAMMIE OF PENDING DISCHARGE TODAY. WILL MONITOR FOR CALL BACK.
[2019-02-14 12:00] VITALS: BP 158/85
--- NOTE | 2019-02-14 14:07 | NUR ---
DAVITA UPDATE NOTE FOLLOWED UP TAMMIE FROM [facility], NO ANSWER. PER TRACY, PENDING AUTHORIZATION AND CHAIR DATE/TIME. PENDING DC, WILL MONITOR AND CALL BACK.
--- NOTE | 2019-02-14 14:35 | NUR ---
Received report from IZZY Thornton for transfer of care. Patient AAOx3, denies pain at this time, lying quietly in bed, spouse at bedside. Patient informed of transfer of care. Patient verbalized understanding. Treatment plan reviewed, pending placement for outpatient dialysis. Bed low, locked, call olivera within reach.
--- NOTE | 2019-02-14 15:23 | NUR ---
CM Note: Pt declined SNF wants to go home instead. CM met with pt as per request. Pt verbalized he changed his mind regarding placement. Prefers to go back home, family will be able to assist pt at home and transport pt to dialysis, requested to cancel placement. CM spoke to Charissa ramirez/[facility], cancelled referral per pt request. Primary nurse aware. Pt currently pending approval and chair time for [facility]. CM to cont to follow up.
[2019-02-14 17:48] VITALS: BP 132/73
[2019-02-14 20:04] VITALS: BP 153/90
[2019-02-14] MEDS: ATORVASTATIN CALCIUM 40 MG TABLET PO SCH (21:23)
[2019-02-14] MEDS: DOXAZOSIN MESYLATE 2 MG TABLET PO SCH (21:23)
[2019-02-14 23:56] VITALS: BP 142/74
[2019-02-15] MEDS: ALBUTEROL SULFATE 0.083% 2.5 MG/3 ML INH IH SCH ×2 (00:08→06:27)
[2019-02-15 03:59] VITALS: BP 151/85
[2019-02-15] MEDS: BUDESONIDE 0.5 MG/2 ML INH IH SCH (06:27)
[2019-02-15] MEDS: LEVOTHYROXINE 25 MCG TABLET PO SCH (06:35)
[2019-02-15] MEDS: INSULIN R PO SS1 SQ SCH (06:35)
[2019-02-15 08:00] VITALS: BP 155/77
--- NOTE | 2019-02-15 10:25 | NUR ---
VERNELL CONFIRMED CHAIR AT [facility] FOR TODAY IZZY CASTRO AND SQUADRON WORKER EM AWARE ORDER FOR DC RECD CLARIFIED METOPROLOL DOSE W MD COWART AND SCRIPT WRITTEN BY GEORGES. PT TO GO TO HD AT [facility] TODAY- CALLED MULTIPLE TIMES TO CONFIRM- NO ANSWER. RECD CONFIRMATION LETTER AND DISCUSSED WITH PT FAMILY LOOKING FOR A RIDE
--- NOTE | 2019-02-15 11:20 | NUR ---
Patient and given discharge instructions and verbalized understanding, iv removed with catheter intact and site dressed, telemetry monitoring unit notified of discharge and telemetry packet removed, follow-up appointments reviewed with patient and medications to continue. prescription given for metoprolol change
--- NOTE | 2019-02-15 15:00 | NUR ---
RECIEVED REPORT FROM BIENVENIDO AT 1435, PATIENT ALERT AND ORIENTATED X3 ON VIA NC INFUSING AT 2 LITERS , DENIES PAIN AT THIS TIME BLOOD SUGAR EVERY 4 HOURS , LUNGS CLEAR , B/P 127/67 P 98 R 20 TRANSFERS TO BED WILL CONTINUE TO MONITOR Addendum: 02/15/19 at 1549 by CLEMENT CASTRO RN RN PLACED ON WRONG PATIENT
== END 2019-02-15 11:15 | disposition home or self-care (01) | DRG 673 ==
LOC: EDH 13:39 → OBSVTOIN 18:00 → EDHIP 18:00 → 3DH 22:44 → 3BH 02-14 17:16
PROVIDERS: ADMIT Internal Medicine Pulmonary Disease; ATTEND Internal Medicine Pulmonary Disease
PROC: 0JH63XZ Insertion of Tunneled Vascular Access Device into Chest Subcutaneous Tissue and Fascia, Percutaneous Approach (ICD-10-PCS; principal; 2019-02-10)
PROC: 02H633Z Insertion of Infusion Device into Right Atrium, Percutaneous Approach (ICD-10-PCS; 2019-02-10)
PROC: B548ZZA Ultrasonography of Superior Vena Cava, Guidance (ICD-10-PCS; 2019-02-10)
PROC: 5A1D70Z Performance of Urinary Filtration, Intermittent, Less than 6 Hours Per Day (ICD-10-PCS; 2019-02-10)
PROC: 5A1D70Z Performance of Urinary Filtration, Intermittent, Less than 6 Hours Per Day (ICD-10-PCS; 2019-02-12)
PROC: 5A1D70Z Performance of Urinary Filtration, Intermittent, Less than 6 Hours Per Day (ICD-10-PCS; 2019-02-13)
DX: N17.9 Acute kidney failure, unspecified (principal); E43 Unspecified severe protein-calorie malnutrition; I13.2 Hypertensive heart and chronic kidney disease with heart failure and with stage 5 chronic kidney disease, or end stage renal disease; I50.30 Unspecified diastolic (congestive) heart failure; N04.9 Nephrotic syndrome with unspecified morphologic changes; N18.6 End stage renal disease; E11.22 Type 2 diabetes mellitus with diabetic chronic kidney disease; D64.9 Anemia, unspecified; E03.9 Hypothyroidism, unspecified; E78.5 Hyperlipidemia, unspecified; E87.6 Hypokalemia; I25.10 Atherosclerotic heart disease of native coronary artery without angina pectoris; J44.9 Chronic obstructive pulmonary disease, unspecified; T44.7X5A Adverse effect of beta-adrenoreceptor antagonists, initial encounter; T50.2X5A Adverse effect of carbonic-anhydrase inhibitors, benzothiadiazides and other diuretics, initial encounter; Z51.5 Encounter for palliative care; Z79.82 Long term (current) use of aspirin; Z79.899 Other long term (current) drug therapy; Z87.441 Personal history of nephrotic syndrome; Z87.891 Personal history of nicotine dependence; Z91.14 Patient's other noncompliance with medication regimen; Z91.15 Patient's noncompliance with renal dialysis; Z91.19 Patient's noncompliance with other medical treatment and regimen; Y92.89 Other specified places as the place of occurrence of the external cause
CPT/HCPCS: 36415; 36558; 71045; 74176; 77001; 80048; 80053; 80061; 80069; 80076; 81001; 82040; 82140; 82150; 82565; 82728; 82948; 83036; 83540; 83550; 83690; 83735; 83880; 84132; 84439; 84443; 84481; 84484; 84520; 85014; 85018; 85025; 85027; 85610; 85730; 86701; 86704; 86706; 87340; 87390; 87520; 90935; 93005; 93306; 93970; 93971; 94640; 94664; 97039; 99291; C1750; G0378; J1644; J1940; J3490; J7030

== ENCOUNTER 2020-05-05 07:53 | Day surgery (SDC) | payer OTHER, MEDICARE ==
[2020-04-30 13:24] LABS: EOSINOPHILS % (AUTO) 8.3 % (0.0-8.0); HEMATOCRIT 37.1 % (42-54); LYMPHOCYTES % (AUTO) 19.7 % (21.0-51.0); MEAN CORPUSCULAR HEMOGLOBIN 31.5 pg (27.0-33.0); MEAN CORPUSCULAR HGB CONC 33.2 g/dL (32.0-36.0); MEAN CORPUSCULAR VOLUME 94.9 fL (79-99); MONOCYTES % (AUTO) 10.9 % (3.0-13.0); NEUTROPHILS % (AUTO) 59.5 % (40.0-77.0); PLATELET COUNT (AUTO) 218 K/uL (130-400); RED BLOOD CELL COUNT(AUTO) 3.91 MIL/uL (4.50-6.20); RED CELL DISTRIBUTION WIDTH 13.3 % (11.0-15.5); WHITE BLOOD COUNT (AUTO) 7.1 K/uL (4.8-10.8)
[2020-04-30 13:37] LABS: ALBUMIN 2.5 g/dL (3.5-5.0); BILIRUBIN,TOTAL 0.2 mg/dL (0.2-1.0); CREATININE 6.5 mg/dL (0.5-1.5); POTASSIUM 4.3 mmol/L (3.5-5.1); TOTAL PROTEIN, SERUM 6.6 g/dL (6.0-8.3)
[2020-04-30 13:39] LABS: INR 1.06 (0.85-1.15); PROTHROMBIN TIME 11.3 SEC (9.6-11.6)
[2020-04-30 13:41] LABS: PARTIAL THROMBOPLASTIN TIME 24.6 SEC (26.3-35.5)
[2020-05-02 12:35] VITALS: BP 127/65
[~2020-05-05] VITALS: Ht 175.3 cm; Wt 90.7 kg
[2020-05-05] VITALS (16 sets, daily range): BP systolic 120–149; BP diastolic 59–78
[~2020-05-05 07:53] MED LIST changes: -ALBUHFA IH; +AMLO-258 PO; -FOLI0.8T22 PO; +FOLI1TAB85 PO; +FURO40TA5 PO; +HYDR-4153 PO; -METO100T14 PO; +POTA-202 PO; -TORS20TA4 PO
[2020-05-05] MEDS: CEFAZOLIN SODIUM 1 GM VIAL IVP SCH ×2 (09:23→10:52)
[2020-05-05] MEDS ORDERED: LIDOCAINE PF 100MG/5ML (2%) SYRINGE 5ML ONE ×2 (10:33→10:34)
[2020-05-05] MEDS ORDERED: NEOSTIGMINE 5MG/5ML SYR IV ONE (10:33)
[2020-05-05] MEDS ORDERED: PROPOFOL 10 MG/ML 20ML VIAL IV ONE (10:33)
[2020-05-05] MEDS ORDERED: GLYCOPYRROLATE 1 MG/5 ML SYRINGE ONE (10:33)
[2020-05-05] MEDS ORDERED: ROCURONIUM 10MG/1ML SYR 10 MG/ML ML ONE (10:33)
[2020-05-05] MEDS ORDERED: ONDANSETRON 4MG INJ ONE (10:33)
[2020-05-05] MEDS ORDERED: SUCCINYLCHOLINE CHLORIDE 20 MG/ML 10 ML VIAL ONE ×2 (10:33→10:34)
[2020-05-05] MEDS ORDERED: FENTANYL CITRATE PF 50 MCG/1 ML 2ML VIAL ONE (10:33)
[2020-05-05] MEDS ORDERED: DEXAMETHASONE SOD PHOSPHATE 10MG/ML 1ML VIAL ONE (10:33)
[2020-05-05] MEDS ORDERED: BUDE10.2 IH (10:55)
[2020-05-05] MEDS ORDERED: AMOX500C2 PO (10:55)
[2020-05-05] MEDS ORDERED: ALBUHFA IH (10:55)
[2020-05-05] MEDS ORDERED: METO-391 PO (10:55)
[2020-05-05] MEDS ORDERED: ATOR-2 PO (10:55)
[2020-05-05] MEDS ORDERED: EPHEDRINE SULFATE 50 MG/ML AMPULE ONE (11:05)
== END 2020-05-05 14:10 | disposition home or self-care (01) ==
LOC: DAH 07:53
PROVIDERS: ATTEND Student in an Organized Health Care Education/Training Program
DX: N18.6 End stage renal disease (principal); Z20.828 Contact with and (suspected) exposure to other viral communicable diseases; I12.0 Hypertensive chronic kidney disease with stage 5 chronic kidney disease or end stage renal disease; E78.00 Pure hypercholesterolemia, unspecified; Z99.2 Dependence on renal dialysis; Z86.73 Personal history of transient ischemic attack (TIA), and cerebral infarction without residual deficits; Z79.82 Long term (current) use of aspirin; Z79.899 Other long term (current) drug therapy; Z98.890 Other specified postprocedural states; Z82.49 Family history of ischemic heart disease and other diseases of the circulatory system; Z87.891 Personal history of nicotine dependence; Z83.3 Family history of diabetes mellitus; Z79.01 Long term (current) use of anticoagulants
CPT/HCPCS: 36415 ×2; 36821; 71045; 80053; 84132; 85025; 85610; 85730; 93005; A4215; A4216; A4221; A4222; A4223 ×2; A4649 ×2; A4663; A4930; A6207; A6260; C1713 ×2; G0168; J0330 ×2; J0690; J1100; J1644; J2001 ×2; J2405; J2704; J2710; J3010; J3490 ×2; U0003

== ENCOUNTER → 2020-06-09 | Outpatient (CLI) | payer OTHER, MEDICARE ==
[~2020-06-09] MED LIST changes: +ALBUHFA IH; +AMOX500C2 PO; +ATOR-2 PO; -ATOR40TA71 PO; +BUDE10.2 IH; -FAMO20TA8 PO; -FURO40TA5 PO; -HYDR-4153 PO; +METO-391 PO; -POTA-202 PO; -SYMBICORT IH
== END | disposition home or self-care (01) ==
LOC: RAH 15:05
PROVIDERS: ATTEND Student in an Organized Health Care Education/Training Program
DX: T88.8XXA Other specified complications of surgical and medical care, not elsewhere classified, initial encounter (principal); M79.89 Other specified soft tissue disorders
CPT/HCPCS: 76882

== ENCOUNTER → 2020-06-13 | Outpatient (CLI) | payer OTHER, MEDICARE ==
[2020-06-13 08:34] LABS: INR 1.03 (0.85-1.15); PROTHROMBIN TIME 11.2 SEC (9.6-11.6)
[2020-06-13 08:36] LABS: PARTIAL THROMBOPLASTIN TIME 24.1 SEC (26.3-35.5)
== END | disposition home or self-care (01) ==
LOC: RAH 07:38
PROVIDERS: ATTEND Student in an Organized Health Care Education/Training Program
DX: R22.31 Localized swelling, mass and lump, right upper limb (principal); Z86.2 Personal history of diseases of the blood and blood-forming organs and certain disorders involving the immune mechanism
CPT/HCPCS: 36415; 76882; 85610; 85730

== ENCOUNTER 2020-09-26 09:27 | Day surgery (SDC) | payer OTHER, MEDICARE ==
[2020-09-24 11:01] LABS: BASOPHILS % (AUTO) 1.2 % (0.0-5.0); EOSINOPHILS % (AUTO) 11.3 % (0.0-8.0); HEMATOCRIT 34.8 % (42-54); LYMPHOCYTES % (AUTO) 23.7 % (21.0-51.0); MEAN CORPUSCULAR HEMOGLOBIN 31.9 pg (27.0-33.0); MEAN CORPUSCULAR VOLUME 96.4 fL (79-99); MONOCYTES % (AUTO) 13.6 % (3.0-13.0); NEUTROPHILS % (AUTO) 49.9 % (40.0-77.0); PLATELET COUNT (AUTO) 171 K/uL (130-400); RED BLOOD CELL COUNT(AUTO) 3.61 MIL/uL (4.50-6.20); RED CELL DISTRIBUTION WIDTH 13.7 % (11.0-15.5)
[2020-09-24 11:03] LABS: INR 1.03 (0.85-1.15); PROTHROMBIN TIME 11.2 SEC (9.6-11.6)
[2020-09-24 11:04] LABS: PARTIAL THROMBOPLASTIN TIME 24.8 SEC (26.3-35.5)
[2020-09-24 11:06] LABS: CREATININE 5.7 mg/dL (0.5-1.5); POTASSIUM 4.6 mmol/L (3.5-5.1)
[~2020-09-26] VITALS: Ht 182.9 cm; Wt 89.6 kg
[2020-09-26 09:38] VITALS: BP 127/55
[2020-09-26] MEDS ORDERED: NACL 0.9% 1000ML 1,000 ML IV ONE (10:08)
[2020-09-26] MEDS ORDERED: HEPARIN 10,000 UNIT/10ML (1,000 UNIT/ML) VIAL ONE (14:43)
[2020-09-26] MEDS ORDERED: IODIXANOL 320 MG/ML 100 ML VIAL ONE (14:44)
[2020-09-26] MEDS ORDERED: SODIUM BICARB 50MEQ 50ML VIAL 50 ML ONE (14:47)
[2020-09-26 15:50] VITALS: BP 138/76
== END 2020-09-26 16:10 | disposition home or self-care (01) ==
LOC: DAH 09:27
PROVIDERS: ATTEND Student in an Organized Health Care Education/Training Program
DX: I12.0 Hypertensive chronic kidney disease with stage 5 chronic kidney disease or end stage renal disease (principal); N18.6 End stage renal disease; I82.210 Acute embolism and thrombosis of superior vena cava; E78.00 Pure hypercholesterolemia, unspecified; Z86.73 Personal history of transient ischemic attack (TIA), and cerebral infarction without residual deficits; Z79.82 Long term (current) use of aspirin; Z79.899 Other long term (current) drug therapy; Z98.890 Other specified postprocedural states; Z83.3 Family history of diabetes mellitus; Z87.891 Personal history of nicotine dependence; Z79.01 Long term (current) use of anticoagulants
CPT/HCPCS: 36415; 36901; 80048; 85025; 85610; 85730; A4215; A4216; A4221; A4222; A4223 ×3; A4606; A4663; C1757; C1769; C1894 ×2; J1644; J3490; J7030; Q9967

== ENCOUNTER 2021-05-18 10:52 | Day surgery (SDC) | payer OTHER, MEDICARE ==
[2021-05-15 14:31] LABS: BASOPHILS % (AUTO) 1.2 % (0.0-5.0); EOSINOPHILS % (AUTO) 17.8 % (0.0-8.0); HEMATOCRIT 34.7 % (42-54); LYMPHOCYTES % (AUTO) 19.8 % (21.0-51.0); MEAN CORPUSCULAR HEMOGLOBIN 31.5 pg (27.0-33.0); MEAN CORPUSCULAR HGB CONC 32.9 g/dL (32.0-36.0); MEAN CORPUSCULAR VOLUME 95.9 fL (79-99); MONOCYTES % (AUTO) 13.5 % (3.0-13.0); NEUTROPHILS % (AUTO) 47.3 % (40.0-77.0); PLATELET COUNT (AUTO) 150 K/uL (130-400); RED BLOOD CELL COUNT(AUTO) 3.62 MIL/uL (4.50-6.20); RED CELL DISTRIBUTION WIDTH 12.8 % (11.0-15.5)
[2021-05-15 14:40] LABS: POTASSIUM 5.2 mmol/L (3.5-5.1)
[2021-05-15 14:42] LABS: PROTHROMBIN TIME 10.9 SEC (9.6-11.6)
[2021-05-15 14:43] LABS: PARTIAL THROMBOPLASTIN TIME 25.2 SEC (26.3-35.5)
[2021-05-15 14:45] LABS: CREATININE 9.9 mg/dL (0.5-1.5)
[2021-05-18] MEDS ORDERED: 0.9% NACL 500ML IV.SOLN 500 ML IV ONE (11:38)
[2021-05-18] MEDS ORDERED: MIDAZOLAM HCL 1 MG/ML 2ML VIAL ONE (12:43)
[2021-05-18] MEDS ORDERED: HEPARIN 10,000 UNIT/10ML (1,000 UNIT/ML) VIAL ONE (12:43)
[2021-05-18] MEDS ORDERED: LIDOCAINE HCL 1% MDV 50ML VIAL ONE (12:44)
[2021-05-18] MEDS ORDERED: FENTANYL CITRATE PF 50 MCG/1 ML 2ML VIAL ONE (12:44)
[2021-05-18] MEDS ORDERED: IODIXANOL 320 MG/ML 100 ML VIAL ONE (13:00)
== END 2021-05-18 15:30 | disposition home or self-care (01) ==
LOC: DAH 10:52
PROVIDERS: ATTEND Student in an Organized Health Care Education/Training Program
DX: T82.858A Stenosis of other vascular prosthetic devices, implants and grafts, initial encounter (principal); Z20.822 Contact with and (suspected) exposure to COVID-19; I12.0 Hypertensive chronic kidney disease with stage 5 chronic kidney disease or end stage renal disease; N18.6 End stage renal disease; E78.00 Pure hypercholesterolemia, unspecified; Z86.73 Personal history of transient ischemic attack (TIA), and cerebral infarction without residual deficits; Z83.3 Family history of diabetes mellitus; Z82.49 Family history of ischemic heart disease and other diseases of the circulatory system; Z99.2 Dependence on renal dialysis; Z87.891 Personal history of nicotine dependence; Y83.2 Surgical operation with anastomosis, bypass or graft as the cause of abnormal reaction of the patient, or of later complication, without mention of misadventure at the time of the procedure
CPT/HCPCS: 36415; 36902; 80048; 85025; 85610; 85730; A4215; A4216; A4221; A4222; A4223 ×3; A4554; A4606; A4663; C1725 ×2; C1757; C1769 ×2; C1894 ×2; J1644 ×2; J3490; J7040; Q9967; 36905; J2250; J3010

== ENCOUNTER → 2023-02-14 | Outpatient (CLI) | payer OTHER, MEDICARE | END | disposition home or self-care (01) | LOC: RAH 13:36 | PROVIDERS: ATTEND Family Medicine | DX: K44.9 Diaphragmatic hernia without obstruction or gangrene (principal); R19.00 Intra-abdominal and pelvic swelling, mass and lump, unspecified site; N28.89 Other specified disorders of kidney and ureter; J44.9 Chronic obstructive pulmonary disease, unspecified; M47.815 Spondylosis without myelopathy or radiculopathy, thoracolumbar region; I25.10 Atherosclerotic heart disease of native coronary artery without angina pectoris; I70.90 Unspecified atherosclerosis; K57.90 Diverticulosis of intestine, part unspecified, without perforation or abscess without bleeding | CPT/HCPCS: 74176 ==

== ENCOUNTER 2023-07-06 06:06 | Day surgery (SDC) | payer MEDICARE ==
[~2023-07-06] VITALS: Ht 175.3 cm; Wt 81.2 kg
[2023-07-06] VITALS (11 sets, daily range): BP systolic 92–155; BP diastolic 53–76; PULSE 58–88; RESP 15–19
[2023-07-06] MEDS ORDERED: 0.9%NACL 1000ML 0 ML IV ONE (06:08)
[2023-07-06] MEDS ORDERED: ATOR10 PO (06:40)
[2023-07-06] MEDS ORDERED: ICOS1CAP2 PO (06:44)
[2023-07-06] MEDS ORDERED: LISI20TA24 PO (06:44)
[2023-07-06] MEDS ORDERED: SEVE800T27 PO (06:44)
[2023-07-06] MEDS ORDERED: MEMA14CA5 PO (06:44)
[2023-07-06] MEDS: 0.9% NACL 500ML IV.SOLN 500 ML IV ONE (06:52)
[2023-07-06] MEDS ORDERED: PROPOFOL 10 MG/ML 20ML VIAL IV ONE (07:52)
== END 2023-07-06 09:35 | disposition home or self-care (01) ==
LOC: ENDO 06:06 → DAH 06:06 → ENDO 09:35
PROVIDERS: ATTEND Internal Medicine Gastroenterology
DX: Z12.11 Encounter for screening for malignant neoplasm of colon (principal); K63.5 Polyp of colon; K64.0 First degree hemorrhoids; K57.30 Diverticulosis of large intestine without perforation or abscess without bleeding; J45.909 Unspecified asthma, uncomplicated; I12.0 Hypertensive chronic kidney disease with stage 5 chronic kidney disease or end stage renal disease; N18.6 End stage renal disease; E78.00 Pure hypercholesterolemia, unspecified; Z79.890 Hormone replacement therapy; Z99.2 Dependence on renal dialysis; Z79.82 Long term (current) use of aspirin; Z79.01 Long term (current) use of anticoagulants
CPT/HCPCS: 45385; J7040; J2704; A4620; A4215; A4223; A4657; A7002; A4222; A4221; A4663; J7030; A4606; J3490

== ENCOUNTER 2023-12-10 10:27 | Inpatient (IN) | payer MEDICARE, OTHER ==
[2023-12-10] VITALS (27 sets, daily range): BP systolic 111–139; BP diastolic 56–79; PULSE 84–113; RESP 13–32; TEMP 97.6–97.7; O2SAT 96–99
[~2023-12-10] VITALS: Ht 177.8 cm; Wt 72.6 kg
[~2023-12-10 10:27] MED LIST changes: -AMLO-258 PO; -AMOX500C2 PO; -ATOR-2 PO; +ATOR10 PO; -BUDE10.2 IH; -CHOL100040 PO; -FENO54TA6 PO; -FOLI1TAB85 PO; +ICOS1CAP2 PO; +LISI20TA24 PO; +MEMA14CA5 PO; -METO-391 PO; +SEVE800T27 PO
[2023-12-10 10:44] LABS: ABG BASE EXCESS 1.5 mmol/L (-2.0-3.0); ABG HCO3 28.3 mmol/L (21.0-28.0); ABG OXYGEN SATURATION 94.5 % (94.0-98.0); ABG PCO2 57 mmHg (35-48); ABG PH 7.317 (7.350-7.450); CARBON MONOXIDE 0.3 % (0.5-1.5); DEVICE COMMENT LR JAVI; HHb 5.5; PO2, ARTERIAL BG 85.9 mmHg (83.0-108.0); VENT MODE, BG 3LNC HOME O2 (ROOM AIR)
[2023-12-10 10:51] LABS: BASOPHILS # (AUTO) 0.08 K/uL (0.00-0.20); BASOPHILS % (AUTO) 0.6 % (0.0-5.0); EOSINOPHILS # (AUTO) 0.02 K/uL (0.00-0.70); EOSINOPHILS % (AUTO) 0.1 % (0.0-8.0); HEMATOCRIT 29.7 % (42-54); IMMATURE GRANULOCYTE ABSOLUTE 0.39 K/uL (0-1); LYMPHOCYTES # (AUTO) 0.5 K/uL (1.0-4.8); LYMPHOCYTES % (AUTO) 3.3 % (21.0-51.0); MEAN CORPUSCULAR HEMOGLOBIN 31.3 pg (27.0-33.0); MEAN CORPUSCULAR HGB CONC 31.3 g/dL (32.0-36.0); MONOCYTES # (AUTO) 0.9 K/uL (0.1-1.0); MONOCYTES % (AUTO) 6.1 % (3.0-13.0); NEUTROPHILS # (AUTO) 12.5 K/uL (1.8-7.7); NEUTROPHILS % (AUTO) 87.2 % (40.0-77.0); NUCLEATED RED BLOOD CELLS 0.3 % (0.0-0.19); PLATELET COUNT (AUTO) 218 K/uL (130-400); RED BLOOD CELL COUNT(AUTO) 2.97 MIL/uL (4.50-6.20); RED CELL DISTRIBUTION WIDTH 17.5 % (11.0-15.5); WHITE BLOOD COUNT (AUTO) 14.4 K/uL (4.8-10.8)
[2023-12-10] MEDS ORDERED: ICOS1CAP PO (10:53)
[2023-12-10] MEDS ORDERED: CALC-1009 PO (10:53)
[2023-12-10] MEDS ORDERED: METO25TA6 PO (10:53)
[2023-12-10] MEDS ORDERED: ALLO100T PO (10:53)
[2023-12-10 11:03] LABS: POTASSIUM 4.4 mmol/L (3.5-5.1)
[2023-12-10 11:07] LABS: ALBUMIN 2.3 g/dL (3.5-5.0); BILIRUBIN,DIRECT 0.3 mg/dL (0.0-0.3); BILIRUBIN,TOTAL 0.7 mg/dL (0.2-1.0); MAGNESIUM 2.2 mg/dL (1.80-2.40); TOTAL PROTEIN, SERUM 5.4 g/dL (6.0-8.3)
[2023-12-10] MEDS: acetaMINOPHEN 650 MG SUPPOSITORY RC ONE (11:22)
[2023-12-10] MEDS: 0.9%NACL 1000ML 2,448 ML IV ONE (11:22)
[2023-12-10] MEDS: ZOSYN 3.375GM+NS 50ML 50 ML IVPB ONE (11:22)
[2023-12-10] MEDS: VANCOMYCIN 1G/250ML KIT 250 ML IV ONE (11:22)
[2023-12-10 11:39] LABS: BAND NEUTROPHILS % (MANUAL) 7 % (0-2); LYMPHOCYTES % (MANUAL) 7 % (22-44); MAN.DIFF COMMENT-IMPRESSION MANUAL DIFFERENTIAL; MONOCYTES % (MANUAL) 9 % (2-9); PLATELET MORPHOLOGY COMMENT ADEQUATE; SEGMENTED NEUTROPHILS % 77 % (40-70); TOTAL CELLS COUNTED 100; WBC MORPHOLOGY CONSISTENT W/DIFF
[2023-12-10] MEDS ORDERED: VANCOMYCIN PROTOCOL PER PHARMACY IV SCH ×3 (12:00→12:30)
[2023-12-10] MEDS ORDERED: ZOSYN 3.375GM +NS 50ML IVPB SCH (12:00)
[2023-12-10] MEDS: NOREPINEPHRIN 4MG/NS 250ML 250 ML IV SCH (12:16)
[2023-12-10 13:08] LABS: INR 1.38 (0.85-1.15); PROTHROMBIN TIME 14.6 SEC (9.6-11.6)
[2023-12-10 13:09] LABS: PARTIAL THROMBOPLASTIN TIME 37.2 SEC (26.3-35.5)
[2023-12-10 13:15] LABS: HEMOGLOBIN A1C 5.4 % (4.0-6.0)
[2023-12-10 13:23] LABS: THYROID STIMULATING HORMONE 1.15 uIU/mL (0.36-3.74)
[2023-12-10] MEDS ORDERED: acetaMINOPHEN 500 MG TABLET PO PRN (14:00)
[2023-12-10] MEDS: VANCOMYCIN 750MG VIAL IVPB ONE (15:34)
[2023-12-10 18:57] LABS: COVID19 (SARS ANTIGEN RAPID) PRESUMPTIVE NEGATIVE (NEGATIVE); INFLUENZA TYPE A Negative For Type A (NEGATIVE); INFLUENZA TYPE B Negative For Type B (NEGATIVE)
[2023-12-10] MEDS: 0.9%NACL 1000ML 1,000 ML IV SCH (21:00)
[2023-12-10] MEDS: Icosapent Ethyl (Vascepa) 2 GM PO SCH (21:00)
[2023-12-10] MEDS: VANCOMYCIN 1G/250ML KIT 250 ML IV SCH (21:00)
[2023-12-10] MEDS: HEParin 5,000 UNIT VIAL SQ SCH (21:45)
[2023-12-11] VITALS (82 sets, daily range): BP systolic 90–138; BP diastolic 40–82; PULSE 99–155; RESP 12–41; TEMP 97.4–98.7; O2SAT 95–99
[2023-12-11] MEDS: ZOSYN 3.375GM +NS 50ML IVPB SCH (01:32)
[2023-12-11 04:09] LABS: BASOPHILS # (AUTO) 0.08 K/uL (0.00-0.20); BASOPHILS % (AUTO) 0.7 % (0.0-5.0); EOSINOPHILS # (AUTO) 0.02 K/uL (0.00-0.70); EOSINOPHILS % (AUTO) 0.2 % (0.0-8.0); HEMATOCRIT 26.7 % (42-54); IMMATURE GRANULOCYTE ABSOLUTE 0.24 K/uL (0-1); LYMPHOCYTES # (AUTO) 0.3 K/uL (1.0-4.8); LYMPHOCYTES % (AUTO) 2.6 % (21.0-51.0); MEAN CORPUSCULAR HEMOGLOBIN 30.7 pg (27.0-33.0); MEAN CORPUSCULAR HGB CONC 30.3 g/dL (32.0-36.0); MEAN CORPUSCULAR VOLUME 101.1 fL (79-99); MONOCYTES # (AUTO) 0.7 K/uL (0.1-1.0); MONOCYTES % (AUTO) 6.6 % (3.0-13.0); NEUTROPHILS # (AUTO) 9.6 K/uL (1.8-7.7); NEUTROPHILS % (AUTO) 87.7 % (40.0-77.0); PLATELET COUNT (AUTO) 141 K/uL (130-400); RED BLOOD CELL COUNT(AUTO) 2.64 MIL/uL (4.50-6.20); RED CELL DISTRIBUTION WIDTH 17.3 % (11.0-15.5)
[2023-12-11 04:12] LABS: ABG BASE EXCESS 0.6 mmol/L (-2.0-3.0); ABG HCO3 27.2 mmol/L (21.0-28.0); ABG OXYGEN SATURATION 97.1 % (94.0-98.0); ABG PCO2 54 mmHg (35-48); ABG PH 7.318 (7.350-7.450); CARBON MONOXIDE 0.4 % (0.5-1.5); HHb 2.9; PO2, ARTERIAL BG 105.5 mmHg (83.0-108.0); VENT MODE, BG NC,32 (ROOM AIR)
[2023-12-11 04:49] LABS: CREATININE 4.5 mg/dL (0.5-1.3); PHOSPHORUS 3.6 mg/dL (2.5-4.9); POTASSIUM 3.3 mmol/L (3.5-5.1); TOTAL PROTEIN, SERUM 4.7 g/dL (6.0-8.3)
[2023-12-11] MEDS: levoTHYROxine 25 MCG TABLET PO SCH (06:46)
[2023-12-11] MEDS: PANTOPrazole 40 MG/VIAL IVP SCH (08:51)
[2023-12-11] MEDS: atorVAStatin 20 MG TABLET PO SCH (08:53)
[2023-12-11] MEDS: CALCIUM CARB PO SCH (09:00)
[2023-12-11] MEDS: CIT PO SCH (09:00)
[2023-12-11] MEDS: VITAMIN D3 PO SCH (09:00)
[2023-12-11] MEDS ORDERED: PoTASSium chloRIDE 20MEQ ER 20 MEQ ERTAB PO PRN (10:00)
[2023-12-11] MEDS ORDERED: PoTASSium chloRIDE 10MEQ/100ML 100 ML IV PRN ×2 (10:00)
[2023-12-11] MEDS: metoPROLOL tartRATE 50 MG TAB PO SCH (10:29)
[2023-12-11] MEDS ORDERED: metoPROLOL tartRATE 50 MG TAB PO SCH (10:30)
[2023-12-11] MEDS: PoTASSium chl 10% ELIXIR 20MEQ 20 MEQ/15 ML UDCUP PO PRN (11:11)
[2023-12-11 21:38] LABS: HEPATITIS B CORE AB TOTAL Non-Reactive (Nonreactive); HEPATITIS B SURFACE ANTIBODY Negative (Reactive); HEPATITIS B SURFACE ANTIGEN Non-Reactive (Nonreactive)
[2023-12-12] VITALS (107 sets, daily range): BP systolic 79–141; BP diastolic 37–82; PULSE 90–138; RESP 16–72; TEMP 97.6–98.7; O2SAT 96–100
[2023-12-12 04:32] LABS: HEMATOCRIT 26.4 % (42-54); MEAN CORPUSCULAR HEMOGLOBIN 30.4 pg (27.0-33.0); MEAN CORPUSCULAR HGB CONC 29.9 g/dL (32.0-36.0); MEAN CORPUSCULAR VOLUME 101.5 fL (79-99); RED BLOOD CELL COUNT(AUTO) 2.6 MIL/uL (4.50-6.20); RED CELL DISTRIBUTION WIDTH 17.5 % (11.0-15.5); WHITE BLOOD COUNT (AUTO) 10.5 K/uL (4.8-10.8)
[2023-12-12 04:49] LABS: INR 1.21 (0.85-1.15); PROTHROMBIN TIME 12.9 SEC (9.6-11.6)
[2023-12-12 04:50] LABS: % IRON SATURATION 30.4 % (30-44)
[2023-12-12 05:00] LABS: ALBUMIN 1.8 g/dL (3.5-5.0); BILIRUBIN,TOTAL 0.5 mg/dL (0.2-1.0); CREATININE 5.9 mg/dL (0.5-1.3); POTASSIUM 3.7 mmol/L (3.5-5.1); TOTAL PROTEIN, SERUM 4.5 g/dL (6.0-8.3)
[2023-12-12] MEDS: polyETHYLene GLYCol 3350 17 GM POWD.PACK PO SCH (08:00)
[2023-12-12] MEDS ORDERED: PoTASSium chloRIDE 10MEQ SR 10 MEQ/TAB TAB.SR.24H PO PRN (08:30)
[2023-12-12] MEDS ORDERED: phenylEPHRINE HCL 50 MG in 0.9% NACL 250ML 250 ML IV PRN (14:00)
[2023-12-12] MEDS ORDERED: ALBUMIN (HUMAN) 25% 100 ML IV SCH (14:00)
[2023-12-12] MEDS: AMIOdarone 900MG VIAL 150 MG in DEXTROSE 5%-WATER 100 ML IV SCH (14:20)
[2023-12-12] MEDS: AMIOdarone 150MG VIAL ONE (14:20)
[2023-12-12] MEDS: AMIOdarone 900MG VIAL 360 MG in DEXTROSE 5%-WATER 200 ML IV SCH (14:21)
[2023-12-12] MEDS: ALBUMIN (HUMAN) 25% 100 ML IV ONE (14:22)
[2023-12-12] MEDS: phenylEPHRINE HCL 10 MG in 0.9% NACL 250ML 250 ML IV PRN (16:27)
[2023-12-12 16:54] LABS: GLUCOSE PLEURAL FLUID 105; PROTEIN PLEURAL FLUID 2.1 mg/dL
[2023-12-12] MEDS ORDERED: 0.9% NACL 250ML 250 ML IV SCH (17:15)
[2023-12-12 17:35] LABS: BODY FLUID RBC 10470 /cu. mm.; BODY FLUID WBC 804 /cu. mm.
[2023-12-12 19:00] LABS: APPEARANCE BODY FLUID SLIGHTLY CLOUDY (CLEAR); SPECIMENTYPE,BODY FLUID PLEURAL
[2023-12-12] MEDS: 0.9%NACL 1000ML 1,000 ML IV SCH (19:00)
[2023-12-12 19:01] LABS: TOTAL VOLUME,BODY FLUID 20.5 mL
[2023-12-12 19:05] LABS: COLOR,BODY FLUID AMBER (LT YELLOW)
[2023-12-12 19:26] LABS: BF LYMPHOCYTE 8 %; BF MACROPHAGE 5; BF MONOCYTE 12 %; BF TOTAL CELLS COUNTED 100
[2023-12-12 19:27] LABS: PH PLEURAL FLUID 7
[2023-12-12] MEDS: metoPROLOL tartRATE 25 MG TAB PO SCH (21:03)
[2023-12-12] MEDS: AMIOdarone 900MG VIAL 540 MG in DEXTROSE 5%-WATER 300 ML IV SCH (21:09)
[2023-12-13] VITALS (77 sets, daily range): BP systolic 93–133; BP diastolic 45–87; PULSE 67–117; RESP 17–33; TEMP 97.6–98.9; O2SAT 96–100
[2023-12-13 05:19] LABS: BASOPHILS # (AUTO) 0.07 K/uL (0.00-0.20); BASOPHILS % (AUTO) 0.8 % (0.0-5.0); EOSINOPHILS # (AUTO) 0.03 K/uL (0.00-0.70); EOSINOPHILS % (AUTO) 0.4 % (0.0-8.0); HEMATOCRIT 24.3 % (42-54); IMMATURE GRANULOCYTE ABSOLUTE 0.22 K/uL (0-1); LYMPHOCYTES # (AUTO) 0.3 K/uL (1.0-4.8); MEAN CORPUSCULAR HEMOGLOBIN 30.5 pg (27.0-33.0); MEAN CORPUSCULAR HGB CONC 30.5 g/dL (32.0-36.0); MONOCYTES # (AUTO) 0.9 K/uL (0.1-1.0); MONOCYTES % (AUTO) 10.3 % (3.0-13.0); NEUTROPHILS % (AUTO) 81.9 % (40.0-77.0); PLATELET COUNT (AUTO) 148 K/uL (130-400); RED BLOOD CELL COUNT(AUTO) 2.43 MIL/uL (4.50-6.20); RED CELL DISTRIBUTION WIDTH 17.5 % (11.0-15.5); WHITE BLOOD COUNT (AUTO) 8.5 K/uL (4.8-10.8)
[2023-12-13 05:35] LABS: ALBUMIN 2.1 g/dL (3.5-5.0); BILIRUBIN,TOTAL 0.6 mg/dL (0.2-1.0); CREATININE 5.1 mg/dL (0.5-1.3); POTASSIUM 3.6 mmol/L (3.5-5.1); TOTAL PROTEIN, SERUM 4.7 g/dL (6.0-8.3); VANCOMYCIN LEVEL 13.1 mcg/mL (20.0-30.0)
[2023-12-13] MEDS: levoTHYROxine 25 MCG TABLET PO SCH (06:45)
[2023-12-13] MEDS: 0.9%NACL 1000ML IV PRN (09:22)
[2023-12-13] MEDS ORDERED: 0.9%NACL 1000ML 1,000 ML IV SCH (09:30)
[2023-12-13] MEDS: AMIOdarone 200 MG TABLET PO SCH (16:26)
[2023-12-13] MEDS: atorVAStatin 20 MG TABLET PO SCH (21:09)
[2023-12-14] VITALS (10 sets, daily range): BP systolic 100–116; BP diastolic 55–80; PULSE 98–115; RESP 18–20; TEMP 97.6–98.8; O2SAT 96–100
[2023-12-14 04:05] LABS: BASOPHILS # (AUTO) 0.11 K/uL (0.00-0.20); BASOPHILS % (AUTO) 1.2 % (0.0-5.0); EOSINOPHILS # (AUTO) 0.04 K/uL (0.00-0.70); EOSINOPHILS % (AUTO) 0.4 % (0.0-8.0); HEMATOCRIT 25.4 % (42-54); IMMATURE GRANULOCYTE ABSOLUTE 0.24 K/uL (0-1); LYMPHOCYTES # (AUTO) 0.5 K/uL (1.0-4.8); MEAN CORPUSCULAR HEMOGLOBIN 30.3 pg (27.0-33.0); MEAN CORPUSCULAR HGB CONC 30.3 g/dL (32.0-36.0); MONOCYTES # (AUTO) 1.2 K/uL (0.1-1.0); NEUTROPHILS % (AUTO) 77.7 % (40.0-77.0); PLATELET COUNT (AUTO) 161 K/uL (130-400); RED BLOOD CELL COUNT(AUTO) 2.54 MIL/uL (4.50-6.20); RED CELL DISTRIBUTION WIDTH 17.6 % (11.0-15.5)
[2023-12-14 04:18] LABS: CREATININE 4.7 mg/dL (0.5-1.3); PHOSPHORUS 3.6 mg/dL (2.5-4.9); POTASSIUM 3.6 mmol/L (3.5-5.1)
[2023-12-14] MEDS ORDERED: AMIOdarone 200 MG TABLET PO SCH (09:00)
[2023-12-14] MEDS: metoPROLOL tartRATE 25 MG TAB PO SCH (16:30)
[2023-12-14] MEDS: EPOETIN ALFA-EPBX (NON-ESRD) 10,000 UNIT/ML VIAL SQ SCH (20:40)
[2023-12-15] VITALS (19 sets, daily range): BP systolic 101–142; BP diastolic 58–84; PULSE 58–112; RESP 16–20; TEMP 98–99.2; O2SAT 92–99
[2023-12-15 05:21] LABS: HEMATOCRIT 25.6 % (42-54); MEAN CORPUSCULAR HEMOGLOBIN 30.2 pg (27.0-33.0); MEAN CORPUSCULAR HGB CONC 29.7 g/dL (32.0-36.0); MEAN CORPUSCULAR VOLUME 101.6 fL (79-99); RED BLOOD CELL COUNT(AUTO) 2.52 MIL/uL (4.50-6.20); RED CELL DISTRIBUTION WIDTH 17.5 % (11.0-15.5); WHITE BLOOD COUNT (AUTO) 7.1 K/uL (4.8-10.8)
[2023-12-15 05:42] LABS: CREATININE 6.2 mg/dL (0.5-1.3); MAGNESIUM 1.9 mg/dL (1.80-2.40); PHOSPHORUS 4.3 mg/dL (2.5-4.9); POTASSIUM 3.6 mmol/L (3.5-5.1); VANCOMYCIN LEVEL 21.6 mcg/mL (20.0-30.0)
[2023-12-15] MEDS ORDERED: METO-391 PO (09:52)
[2023-12-15] MEDS ORDERED: AMIO200T44 PO (09:52)
[2023-12-15] MEDS ORDERED: LEVO-70 PO (09:52)
[2023-12-15] MEDS ORDERED: 0.9%NACL 1000ML 1,000 ML IV SCH (10:30)
[2023-12-15] MEDS: EPOETIN ALFA-EPBX (NON-ESRD) 10,000 UNIT/ML VIAL SQ SCH (16:07)
== END 2023-12-15 16:20 | disposition home or self-care (01) | DRG 871 ==
LOC: EDH 10:27 → EDHIP 12:04 → 2CV 18:58 → 2BH 12-12 08:14 → 2CH 12-13 07:28 → 2DH 12-13 16:00
PROVIDERS: ADMIT Internal Medicine; ATTEND Internal Medicine
PROC: 5A09357 Assistance with Respiratory Ventilation, Less than 24 Consecutive Hours, Continuous Positive Airway Pressure (ICD-10-PCS; principal; 2023-12-10)
PROC: 5A1D70Z Performance of Urinary Filtration, Intermittent, Less than 6 Hours Per Day (ICD-10-PCS; 2023-12-10)
PROC: 5A09357 Assistance with Respiratory Ventilation, Less than 24 Consecutive Hours, Continuous Positive Airway Pressure (ICD-10-PCS; 2023-12-11)
PROC: 5A09357 Assistance with Respiratory Ventilation, Less than 24 Consecutive Hours, Continuous Positive Airway Pressure (ICD-10-PCS; 2023-12-12)
PROC: 5A1D70Z Performance of Urinary Filtration, Intermittent, Less than 6 Hours Per Day (ICD-10-PCS; 2023-12-12)
PROC: 0W9B3ZZ Drainage of Left Pleural Cavity, Percutaneous Approach (ICD-10-PCS; 2023-12-12)
PROC: 5A1D70Z Performance of Urinary Filtration, Intermittent, Less than 6 Hours Per Day (ICD-10-PCS; 2023-12-13)
PROC: 5A1D70Z Performance of Urinary Filtration, Intermittent, Less than 6 Hours Per Day (ICD-10-PCS; 2023-12-15)
DX: A41.50 Gram-negative sepsis, unspecified (principal); I21.A1 Myocardial infarction type 2; J96.01 Acute respiratory failure with hypoxia; N18.6 End stage renal disease; R65.21 Severe sepsis with septic shock; J96.02 Acute respiratory failure with hypercapnia; J18.9 Pneumonia, unspecified organism; I13.2 Hypertensive heart and chronic kidney disease with heart failure and with stage 5 chronic kidney disease, or end stage renal disease; E46 Unspecified protein-calorie malnutrition; Z16.24 Resistance to multiple antibiotics; J90 Pleural effusion, not elsewhere classified; J98.19 Other pulmonary collapse; E11.22 Type 2 diabetes mellitus with diabetic chronic kidney disease; I50.9 Heart failure, unspecified; E78.00 Pure hypercholesterolemia, unspecified; I48.0 Paroxysmal atrial fibrillation; E03.9 Hypothyroidism, unspecified; E88.09 Other disorders of plasma-protein metabolism, not elsewhere classified; Z66 Do not resuscitate; Z99.2 Dependence on renal dialysis; D63.1 Anemia in chronic kidney disease; Z20.822 Contact with and (suspected) exposure to COVID-19; I07.1 Rheumatic tricuspid insufficiency; I25.10 Atherosclerotic heart disease of native coronary artery without angina pectoris; J45.909 Unspecified asthma, uncomplicated; Z86.73 Personal history of transient ischemic attack (TIA), and cerebral infarction without residual deficits; Z68.23 Body mass index [BMI] 23.0-23.9, adult; Z79.01 Long term (current) use of anticoagulants; Z79.899 Other long term (current) drug therapy
CPT/HCPCS: 36415; 36600; 71045; 71250; 80048; 80053; 80076; 80202; 82435; 82533; 82550; 82803; 82945; 82947; 83036; 83540; 83550; 83605; 83615; 83735; 83880; 83986; 84100; 84132; 84145; 84155; 84157; 84295; 84443; 84484; 85018; 85025; 85027; 85610; 85730; 86140; 86704; 86706; 87040; 87071; 87086; 87116; 87186; 87205; 87206; 87340; 87426; 87804; 87880; 88112; 88305; 89051; 90935; 93005; 93306; 94660; 96365; 96368; 99291; 99292; G0378; J0282; J1644; J2470; J2543; J3370; J3490; J7030; J7060; P9046; Q5106

== ENCOUNTER 2023-12-17 10:35 | Inpatient (IN) | payer OTHER, MEDICARE ==
[2023-12-17] VITALS (19 sets, daily range): BP systolic 81–110; BP diastolic 49–67; PULSE 75–107; RESP 17–22; TEMP 97.4–98; O2SAT 98
[~2023-12-17] VITALS: Ht 172.7 cm; Wt 76.2 kg
[~2023-12-17 10:35] MED LIST changes: +ALLO100T PO; +AMIO200T44 PO; -ASPI-1012 PO; +CALC-1009 PO; -DOXA2TAB2 PO; +ICOS1CAP PO; -ICOS1CAP2 PO; +LEVO-70 PO; -LISI20TA24 PO; +METO-391 PO; -SEVE800T27 PO
[2023-12-17 11:07] LABS: BASOPHILS # (AUTO) 0.11 K/uL (0.00-0.20); BASOPHILS % (AUTO) 1.3 % (0.0-5.0); EOSINOPHILS # (AUTO) 0.06 K/uL (0.00-0.70); EOSINOPHILS % (AUTO) 0.7 % (0.0-8.0); HEMATOCRIT 27.9 % (42-54); IMMATURE GRANULOCYTE ABSOLUTE 0.32 K/uL (0-1); LYMPHOCYTES # (AUTO) 0.6 K/uL (1.0-4.8); LYMPHOCYTES % (AUTO) 6.8 % (21.0-51.0); MEAN CORPUSCULAR HEMOGLOBIN 30.9 pg (27.0-33.0); MEAN CORPUSCULAR HGB CONC 30.8 g/dL (32.0-36.0); MEAN CORPUSCULAR VOLUME 100.4 fL (79-99); MONOCYTES # (AUTO) 1.1 K/uL (0.1-1.0); MONOCYTES % (AUTO) 12.2 % (3.0-13.0); NEUTROPHILS # (AUTO) 6.6 K/uL (1.8-7.7); NEUTROPHILS % (AUTO) 75.3 % (40.0-77.0); PLATELET COUNT (AUTO) 231 K/uL (130-400); RED BLOOD CELL COUNT(AUTO) 2.78 MIL/uL (4.50-6.20); RED CELL DISTRIBUTION WIDTH 18.1 % (11.0-15.5); WHITE BLOOD COUNT (AUTO) 8.8 K/uL (4.8-10.8)
[2023-12-17 11:22] LABS: CREATININE 6.8 mg/dL (0.5-1.3); POTASSIUM 4.2 mmol/L (3.5-5.1)
[2023-12-17] MEDS ORDERED: acetaMINOPHEN 500 MG TABLET PO PRN (14:00)
[2023-12-17 14:10] LABS: HEMOGLOBIN A1C 5.5 % (4.0-6.0)
[2023-12-17 14:18] LABS: THYROID STIMULATING HORMONE 2.51 uIU/mL (0.36-3.74)
[2023-12-17] MEDS: ZOSYN 3.375GM +NS 50ML IVPB SCH (14:54)
[2023-12-17] MEDS: SODIUM CHLORIDE 3% FOR INHALATION 4 ML/AMP VIAL.NEB IH ONE ×2 (15:01→18:43)
[2023-12-17] MEDS ORDERED: guaiFENesin-DM 200/20MG 10ML PO PRN (17:00)
[2023-12-17] MEDS ORDERED: MIDO10TA PO (17:58)
[2023-12-17] MEDS: 0.9%NACL 1000ML 1,000 ML IV SCH (18:30)
[2023-12-17] MEDS: ALBUTEROL 0.083% 2.5 MG/3 ML INH IH SCH (18:43)
[2023-12-17] MEDS: furoSEMIDE 40MG VIAL IV ONE (21:00)
[2023-12-17 21:07] LABS: % IRON SATURATION 44.6 % (30-44)
[2023-12-17] MEDS: HEParin 5,000 UNIT VIAL SQ SCH (21:51)
[2023-12-17] MEDS: miDODRine HCL 5 MG TABLET PO ONE (22:17)
[2023-12-18] VITALS (13 sets, daily range): BP systolic 90–140; BP diastolic 49–66; PULSE 50–97; RESP 16–22; TEMP 97.5–99.4; O2SAT 95–100
[2023-12-18 05:26] LABS: BASOPHILS # (AUTO) 0.09 K/uL (0.00-0.20); BASOPHILS % (AUTO) 1.6 % (0.0-5.0); EOSINOPHILS # (AUTO) 0.06 K/uL (0.00-0.70); EOSINOPHILS % (AUTO) 1.1 % (0.0-8.0); HEMATOCRIT 28.3 % (42-54); IMMATURE GRANULOCYTE ABSOLUTE 0.18 K/uL (0-1); LYMPHOCYTES # (AUTO) 0.3 K/uL (1.0-4.8); LYMPHOCYTES % (AUTO) 5.3 % (21.0-51.0); MEAN CORPUSCULAR HEMOGLOBIN 30.1 pg (27.0-33.0); MEAN CORPUSCULAR HGB CONC 29.3 g/dL (32.0-36.0); MEAN CORPUSCULAR VOLUME 102.5 fL (79-99); MONOCYTES # (AUTO) 0.8 K/uL (0.1-1.0); MONOCYTES % (AUTO) 13.9 % (3.0-13.0); NEUTROPHILS # (AUTO) 4.2 K/uL (1.8-7.7); NEUTROPHILS % (AUTO) 74.9 % (40.0-77.0); PLATELET COUNT (AUTO) 186 K/uL (130-400); RED BLOOD CELL COUNT(AUTO) 2.76 MIL/uL (4.50-6.20); RED CELL DISTRIBUTION WIDTH 18.1 % (11.0-15.5); WHITE BLOOD COUNT (AUTO) 5.6 K/uL (4.8-10.8)
[2023-12-18 05:40] LABS: INR 1.12 (0.85-1.15)
[2023-12-18 05:42] LABS: PARTIAL THROMBOPLASTIN TIME 31.2 SEC (26.3-35.5)
[2023-12-18 06:18] LABS: ALBUMIN 1.9 g/dL (3.5-5.0); BILIRUBIN,DIRECT 0.2 mg/dL (0.0-0.3); BILIRUBIN,TOTAL 0.5 mg/dL (0.2-1.0); CREATININE 5.1 mg/dL (0.5-1.3); POTASSIUM 3.6 mmol/L (3.5-5.1); THYROID STIMULATING HORMONE 1.76 uIU/mL (0.36-3.74); TOTAL PROTEIN, SERUM 4.7 g/dL (6.0-8.3)
[2023-12-18] MEDS: miDODRine HCL 5 MG TABLET PO SCH (08:33)
[2023-12-18] MEDS: PANTOPrazole 40 MG TAB DR PO SCH (08:33)
[2023-12-18] MEDS: atorVAStatin 20 MG TABLET PO SCH (08:33)
[2023-12-18] MEDS: levoTHYROxine 25 MCG TABLET PO SCH (08:33)
[2023-12-18] MEDS: MEMANTINE HCL 14 MG PO SCH (08:34)
[2023-12-18] MEDS: VASCEPA 2 GM PO SCH (08:34)
[2023-12-18] MEDS: metOPROLol sucCINATE 50 MG TAB.SR.24H PO SCH (08:34)
[2023-12-18] MEDS: AMIOdarone 200 MG TABLET PO SCH (08:34)
[2023-12-18] MEDS ORDERED: NON-FORMULARY MEDICATION 1 EACH (Midodrine HCl 10 MG) PO SCH (09:00)
[2023-12-18] MEDS: IpraTROPium 0.5 MG/2.5 ML INH IH SCH (18:52)
[2023-12-18] MEDS: metOPROLol sucCINATE 25 MG TAB.SR.24H PO SCH (20:38)
[2023-12-19] VITALS (14 sets, daily range): BP systolic 108–138; BP diastolic 59–82; PULSE 64–105; RESP 16–20; TEMP 98.1–98.9; O2SAT 95–99
[2023-12-19 05:12] LABS: BASOPHILS % (AUTO) 1.6 % (0.0-5.0); EOSINOPHILS # (AUTO) 0.08 K/uL (0.00-0.70); EOSINOPHILS % (AUTO) 1.3 % (0.0-8.0); HEMATOCRIT 25.9 % (42-54); LYMPHOCYTES # (AUTO) 0.7 K/uL (1.0-4.8); LYMPHOCYTES % (AUTO) 11.3 % (21.0-51.0); MEAN CORPUSCULAR HEMOGLOBIN 31.4 pg (27.0-33.0); MEAN CORPUSCULAR HGB CONC 30.9 g/dL (32.0-36.0); MEAN CORPUSCULAR VOLUME 101.6 fL (79-99); MONOCYTES # (AUTO) 1.2 K/uL (0.1-1.0); MONOCYTES % (AUTO) 19.3 % (3.0-13.0); NEUTROPHILS % (AUTO) 64.9 % (40.0-77.0); PLATELET COUNT (AUTO) 177 K/uL (130-400); RED BLOOD CELL COUNT(AUTO) 2.55 MIL/uL (4.50-6.20); RED CELL DISTRIBUTION WIDTH 18.6 % (11.0-15.5); WHITE BLOOD COUNT (AUTO) 6.1 K/uL (4.8-10.8)
[2023-12-19 05:22] LABS: INR 1.16 (0.85-1.15); PROTHROMBIN TIME 12.4 SEC (9.6-11.6)
[2023-12-19 05:24] LABS: CREATININE 6.8 mg/dL (0.5-1.3); POTASSIUM 3.7 mmol/L (3.5-5.1)
[2023-12-19 12:26] LABS: HEPATITIS B CORE AB TOTAL Non-Reactive (Nonreactive); HEPATITIS B SURFACE ANTIBODY Negative (Reactive); HEPATITIS B SURFACE ANTIGEN Non-Reactive (Nonreactive)
[2023-12-19] MEDS: RENAL DOSE IV SCH (15:00)
[2023-12-19] MEDS ORDERED: VANCOMYCIN PROTOCOL PER PHARMACY IV SCH (15:00)
[2023-12-19] MEDS: VANCOMYCIN HCL 1.5 GM/250 ML BAG IV ONE (16:05)
[2023-12-19 16:25] LABS: HEMOGLOBIN A1C 5.4 % (4.0-6.0)
[2023-12-19 16:28] LABS: CHOLESTEROL 97 mg/dL (<200); HDL CHOLESTEROL 32 mg/dL (29-71); LDL DIRECT 50 mg/dL (0-99); TRIGLYCERIDES 127 mg/dL (30-200)
[2023-12-19] MEDS: metoPROLOL tartRATE 1 MG/ML 5ML VIAL IV ONE (17:00)
[2023-12-19] MEDS: VANCOMYCIN 1.5 GM/250 ML BAG 250 ML IV SCH (17:29)
[2023-12-19] MEDS: atorVAStatin 20 MG TABLET PO SCH (21:04)
[2023-12-19] MEDS: metOPROLol sucCINATE 25 MG TAB.SR.24H PO SCH (21:05)
[2023-12-20] VITALS (30 sets, daily range): BP systolic 106–139; BP diastolic 51–81; PULSE 57–120; RESP 16–20; TEMP 97.2–98.7; O2SAT 94–98
[2023-12-20] MEDS: metoPROLOL tartRATE 1 MG/ML 5ML VIAL IV ONE (00:27)
[2023-12-20 05:14] LABS: BASOPHILS # (AUTO) 0.13 K/uL (0.00-0.20); BASOPHILS % (AUTO) 2.1 % (0.0-5.0); EOSINOPHILS # (AUTO) 0.14 K/uL (0.00-0.70); EOSINOPHILS % (AUTO) 2.3 % (0.0-8.0); HEMATOCRIT 26.4 % (42-54); IMMATURE GRANULOCYTE ABSOLUTE 0.07 K/uL (0-1); LYMPHOCYTES # (AUTO) 0.7 K/uL (1.0-4.8); LYMPHOCYTES % (AUTO) 11.9 % (21.0-51.0); MEAN CORPUSCULAR HEMOGLOBIN 30.4 pg (27.0-33.0); MEAN CORPUSCULAR HGB CONC 29.9 g/dL (32.0-36.0); MEAN CORPUSCULAR VOLUME 101.5 fL (79-99); MONOCYTES # (AUTO) 1.3 K/uL (0.1-1.0); MONOCYTES % (AUTO) 20.9 % (3.0-13.0); NEUTROPHILS # (AUTO) 3.8 K/uL (1.8-7.7); NEUTROPHILS % (AUTO) 61.7 % (40.0-77.0); PLATELET COUNT (AUTO) 169 K/uL (130-400); WHITE BLOOD COUNT (AUTO) 6.2 K/uL (4.8-10.8)
[2023-12-20 05:26] LABS: MAGNESIUM 1.9 mg/dL (1.80-2.40); POTASSIUM 3.9 mmol/L (3.5-5.1)
[2023-12-20 06:04] LABS: VANCOMYCIN LEVEL 32.4 mcg/mL (20.0-30.0)
[2023-12-20 06:07] LABS: CREATININE 8.2 mg/dL (0.5-1.3)
[2023-12-20 06:58] LABS: THYROID STIMULATING HORMONE 2.99 uIU/mL (0.36-3.74)
[2023-12-20 13:25] LABS: TOTAL PROTEIN, SERUM 5.3 g/dL (6.0-8.3)
[2023-12-20 13:36] LABS: GLUCOSE PLEURAL FLUID 104; PROTEIN PLEURAL FLUID 2.4 mg/dL
[2023-12-20 14:25] LABS: BODY FLUID RBC 16568 /cu. mm.; BODY FLUID WBC 203 /cu. mm.
[2023-12-20 14:33] LABS: APPEARANCE BODY FLUID CLOUDY (CLEAR); COLOR,BODY FLUID RED (LT YELLOW); SPECIMENTYPE,BODY FLUID PLEURAL
[2023-12-20 14:35] LABS: TOTAL VOLUME,BODY FLUID 2000 mL
[2023-12-20] MEDS ORDERED: VANCOMYCIN 750MG VIAL IVPB SCH (16:00)
[2023-12-20 18:09] LABS: BF LYMPHOCYTE 56 %; BF MONOCYTE 7 %; BF TOTAL CELLS COUNTED 100
[2023-12-20 18:13] LABS: PH PLEURAL FLUID 7
[2023-12-20] MEDS: EPOETIN ALFA-EPBX (NON-ESRD) 10,000 UNIT/ML VIAL SQ SCH (20:50)
[2023-12-21] VITALS (13 sets, daily range): BP systolic 96–124; BP diastolic 52–71; PULSE 74–122; RESP 17–20; TEMP 98.2–99.1; O2SAT 88–97
[2023-12-21 05:18] LABS: BASOPHILS # (AUTO) 0.12 K/uL (0.00-0.20); BASOPHILS % (AUTO) 1.6 % (0.0-5.0); EOSINOPHILS # (AUTO) 0.17 K/uL (0.00-0.70); EOSINOPHILS % (AUTO) 2.3 % (0.0-8.0); HEMATOCRIT 31.3 % (42-54); IMMATURE GRANULOCYTE ABSOLUTE 0.05 K/uL (0-1); LYMPHOCYTES # (AUTO) 0.8 K/uL (1.0-4.8); LYMPHOCYTES % (AUTO) 10.2 % (21.0-51.0); MEAN CORPUSCULAR HEMOGLOBIN 30.1 pg (27.0-33.0); MEAN CORPUSCULAR HGB CONC 29.4 g/dL (32.0-36.0); MEAN CORPUSCULAR VOLUME 102.3 fL (79-99); MONOCYTES # (AUTO) 1.2 K/uL (0.1-1.0); MONOCYTES % (AUTO) 16.1 % (3.0-13.0); NEUTROPHILS # (AUTO) 5.2 K/uL (1.8-7.7); NEUTROPHILS % (AUTO) 69.1 % (40.0-77.0); PLATELET COUNT (AUTO) 172 K/uL (130-400); RED BLOOD CELL COUNT(AUTO) 3.06 MIL/uL (4.50-6.20); RED CELL DISTRIBUTION WIDTH 19.1 % (11.0-15.5); WHITE BLOOD COUNT (AUTO) 7.5 K/uL (4.8-10.8)
[2023-12-21 05:56] LABS: ALBUMIN 2.1 g/dL (3.5-5.0); BILIRUBIN,TOTAL 0.6 mg/dL (0.2-1.0); MAGNESIUM 1.9 mg/dL (1.80-2.40); PHOSPHORUS 4.5 mg/dL (2.5-4.9); POTASSIUM 3.8 mmol/L (3.5-5.1); TOTAL PROTEIN, SERUM 5.1 g/dL (6.0-8.3)
[2023-12-22] VITALS (24 sets, daily range): BP systolic 105–128; BP diastolic 62–86; PULSE 58–95; RESP 16–20; TEMP 97.5–98.2; O2SAT 97–100
[2023-12-22 05:09] LABS: BASOPHILS # (AUTO) 0.12 K/uL (0.00-0.20); BASOPHILS % (AUTO) 1.9 % (0.0-5.0); EOSINOPHILS # (AUTO) 0.16 K/uL (0.00-0.70); EOSINOPHILS % (AUTO) 2.5 % (0.0-8.0); HEMATOCRIT 26.8 % (42-54); IMMATURE GRANULOCYTE ABSOLUTE 0.07 K/uL (0-1); LYMPHOCYTES # (AUTO) 0.7 K/uL (1.0-4.8); LYMPHOCYTES % (AUTO) 10.8 % (21.0-51.0); MONOCYTES # (AUTO) 1.3 K/uL (0.1-1.0); MONOCYTES % (AUTO) 20.2 % (3.0-13.0); NEUTROPHILS % (AUTO) 63.5 % (40.0-77.0); PLATELET COUNT (AUTO) 149 K/uL (130-400); RED BLOOD CELL COUNT(AUTO) 2.68 MIL/uL (4.50-6.20); RED CELL DISTRIBUTION WIDTH 19.3 % (11.0-15.5); WHITE BLOOD COUNT (AUTO) 6.3 K/uL (4.8-10.8)
[2023-12-22 05:32] LABS: B-TYPE NATRIURETIC PEPTIDE 3320 pg/mL (0-100)
[2023-12-22 05:33] LABS: ALBUMIN 1.8 g/dL (3.5-5.0); BILIRUBIN,TOTAL 0.6 mg/dL (0.2-1.0); CREATININE 7.6 mg/dL (0.5-1.3); MAGNESIUM 1.9 mg/dL (1.80-2.40); TOTAL PROTEIN, SERUM 4.6 g/dL (6.0-8.3); VANCOMYCIN LEVEL 21.7 mcg/mL (20.0-30.0)
[2023-12-22] MEDS: levoTHYROxine 25 MCG TABLET PO SCH (06:08)
[2023-12-22] MEDS ORDERED: VANCOMYCIN 750MG VIAL IVPB SCH (16:00)
== END 2023-12-22 17:30 | DRG 871 ==
LOC: EDH 10:35 → EDHIP 13:35 → 3CH 22:17
PROVIDERS: ADMIT Internal Medicine; ATTEND Internal Medicine
PROC: 0W9B3ZZ Drainage of Left Pleural Cavity, Percutaneous Approach (ICD-10-PCS; principal; 2023-12-20)
DX: A41.50 Gram-negative sepsis, unspecified (principal); E43 Unspecified severe protein-calorie malnutrition; J96.01 Acute respiratory failure with hypoxia; N18.6 End stage renal disease; J15.69 Pneumonia due to other Gram-negative bacteria; C85.10 Unspecified B-cell lymphoma, unspecified site; N39.0 Urinary tract infection, site not specified; J98.11 Atelectasis; I12.0 Hypertensive chronic kidney disease with stage 5 chronic kidney disease or end stage renal disease; J91.8 Pleural effusion in other conditions classified elsewhere; I48.91 Unspecified atrial fibrillation; D63.1 Anemia in chronic kidney disease; B96.89 Other specified bacterial agents as the cause of diseases classified elsewhere; E03.9 Hypothyroidism, unspecified; E11.22 Type 2 diabetes mellitus with diabetic chronic kidney disease; E78.00 Pure hypercholesterolemia, unspecified; I34.81 Nonrheumatic mitral (valve) annulus calcification; J45.909 Unspecified asthma, uncomplicated; R62.7 Adult failure to thrive; Z99.2 Dependence on renal dialysis; Z86.73 Personal history of transient ischemic attack (TIA), and cerebral infarction without residual deficits; Z87.01 Personal history of pneumonia (recurrent); Z68.25 Body mass index [BMI] 25.0-25.9, adult; Z79.899 Other long term (current) drug therapy; Z85.89 Personal history of malignant neoplasm of other organs and systems
CPT/HCPCS: 32555; 36415; 70450; 71045; 80048; 80053; 80061; 80076; 80202; 82140; 82306; 82607; 82945; 83036; 83540; 83550; 83615; 83735; 83880; 83986; 84100; 84145; 84155; 84157; 84439; 84443; 85025; 85610; 85730; 86140; 86704; 86706; 86850; 86900; 86901; 87040; 87071; 87086; 87186; 87205; 87340; 88112; 88305; 89051; 90935; 92610; 93005; 93308; 93356; 94640; 94664; C1729; G0378; J1644; J1940; J2543; J3490; A4600; J3370; Q5106

== ENCOUNTER 2024-01-09 10:56 | Inpatient (IN) | payer OTHER, MEDICARE ==
[~2024-01-09] VITALS: Ht 157.5 cm; Wt 74.8 kg
[2024-01-09] VITALS (9 sets, daily range): BP systolic 125–157; BP diastolic 78–99; PULSE 100–117; RESP 18–24; TEMP 97.6–98.2; O2SAT 36–99
[~2024-01-09 10:56] MED LIST changes: -ALBUHFA IH; -ALLO100T PO; -CALC-1009 PO; -LEVO-70 PO; +MIDO10TA PO
[2024-01-09] MEDS ORDERED: rocuRONium bROMide 10MG/1ML 5ML VL IV ONE (11:09)
[2024-01-09 11:54] LABS: HEMATOCRIT 30.6 % (42-54); MEAN CORPUSCULAR HEMOGLOBIN 31.6 pg (27.0-33.0); MEAN CORPUSCULAR HGB CONC 31.4 g/dL (32.0-36.0); MEAN CORPUSCULAR VOLUME 100.7 fL (79-99); RED BLOOD CELL COUNT(AUTO) 3.04 MIL/uL (4.50-6.20); RED CELL DISTRIBUTION WIDTH 17.3 % (11.0-15.5)
[2024-01-09 11:59] LABS: ALBUMIN 3.1 g/dL (3.5-5.0); BILIRUBIN,TOTAL 1.1 mg/dL (0.2-1.0); CREATININE 6.2 mg/dL (0.5-1.3); PLATELET COUNT (AUTO) 8 K/uL (130-400); POTASSIUM 5.8 mmol/L (3.5-5.1); TOTAL PROTEIN, SERUM 5.8 g/dL (6.0-8.3); WHITE BLOOD COUNT (AUTO) 0.4 K/uL (4.8-10.8)
[2024-01-09] MEDS: TBO-FILGRASTIM 480 MCG/0.8 ML ML SQ SCH (12:00)
[2024-01-09] MEDS: ZOSYN 3.375GM +NS 50ML IVPB SCH (12:01)
[2024-01-09] MEDS ORDERED: 0.9%NACL 1000ML 1,000 ML IV SCH (15:30)
[2024-01-09] MEDS ORDERED: PHARMACY COMMUNICATION 1 EACH EACH MISC SCH (16:00)
[2024-01-09] MEDS: SODIUM ZIRCONIUM CYCLOSILICATE 5 GM POWD.PACK PO ONE (16:49)
[2024-01-09] MEDS: dexaMETHasone SOD PHOSPHATE 4 MG/ML 1ML VIAL IV PRN (16:50)
[2024-01-09] MEDS: DiphenhydrAMINE HCL 50 MG/ML VIAL IV PRN (16:50)
[2024-01-09] MEDS ORDERED: ERGO500093 PO (19:00)
[2024-01-09] MEDS ORDERED: METO-408 PO (19:00)
[2024-01-09] MEDS ORDERED: PANT40TA54 PO (19:00)
[2024-01-09] MEDS ORDERED: HYDR-3420 PO (19:00)
[2024-01-09] MEDS ORDERED: DOXA2TAB2 PO (19:00)
[2024-01-09] MEDS ORDERED: LISI20TA24 PO (19:00)
[2024-01-09] MEDS ORDERED: ALLO100T PO (19:00)
[2024-01-09 20:35] LABS: ABG BASE EXCESS -1.4 mmol/L (-2.0-3.0); ABG PCO2 34 mmHg (35-48); ABG PH 7.435 (7.350-7.450); DEVICE COMMENT RN ,RR; PO2, ARTERIAL BG 71.2 mmHg (83.0-108.0); VENT MODE, BG NC (ROOM AIR)
[2024-01-09] MEDS: hydrALAZine HCL 10 MG TABLET PO SCH (20:56)
[2024-01-09] MEDS: ICOSAPENT ETHYL 2 GM PO SCH (20:57)
[2024-01-09] MEDS: alloPURInol 100 MG TABLET PO SCH (20:57)
[2024-01-09] MEDS: metOPROLol sucCINATE 25 MG TAB.SR.24H PO SCH (20:57)
[2024-01-09] MEDS: miDODRine HCL 5 MG TABLET PO SCH (20:58)
[2024-01-10] VITALS (25 sets, daily range): BP systolic 110–140; BP diastolic 60–92; PULSE 86–122; RESP 18–20; TEMP 97.3–98.2; O2SAT 98–100
[2024-01-10 05:22] LABS: HEMATOCRIT 26.7 % (42-54); MEAN CORPUSCULAR HEMOGLOBIN 31.8 pg (27.0-33.0); MEAN CORPUSCULAR HGB CONC 31.5 g/dL (32.0-36.0); MEAN CORPUSCULAR VOLUME 101.1 fL (79-99); PLATELET COUNT (AUTO) 20 K/uL (130-400); RED BLOOD CELL COUNT(AUTO) 2.64 MIL/uL (4.50-6.20); RED CELL DISTRIBUTION WIDTH 16.9 % (11.0-15.5)
[2024-01-10 05:25] LABS: WHITE BLOOD COUNT (AUTO) 0.1 K/uL (4.8-10.8)
[2024-01-10 05:37] LABS: PHOSPHORUS 8.5 mg/dL (2.5-4.9)
[2024-01-10] MEDS: dexaMETHasone SOD PHOSPHATE 10MG/ML 1ML VIAL IV ONE (06:22)
[2024-01-10] MEDS: levoTHYROxine 25 MCG TABLET PO SCH (06:22)
[2024-01-10] MEDS: DiphenhydrAMINE HCL 50 MG/ML VIAL IV ONE (06:22)
[2024-01-10] MEDS: MEMANTINE HCL 14 MG PO SCH (09:00)
[2024-01-10] MEDS: PANTOPrazole 40 MG TAB DR PO SCH (09:24)
[2024-01-10] MEDS: Vitamin B Complex/Vit C/Folic Acid PO SCH (09:24)
[2024-01-10] MEDS: atorVAStatin 10 MG TABLET PO SCH (09:25)
[2024-01-10] MEDS: 0.9%NACL 1000ML 1,000 ML IV SCH (12:20)
[2024-01-10] MEDS: AMIOdarone 200 MG TABLET PO SCH (14:25)
[2024-01-10] MEDS: sevELAMer HCL 800 MG TABLET PO SCH (16:02)
[2024-01-10] MEDS: DOXAZOSIN MESYLATE 2 MG TABLET PO SCH (16:02)
[2024-01-10] MEDS: LISINOPRIL 20 MG TABLET PO SCH (16:02)
[2024-01-10 20:51] LABS: HEPATITIS B CORE AB TOTAL Non-Reactive (Nonreactive); HEPATITIS B SURFACE ANTIBODY Negative (Reactive); HEPATITIS B SURFACE ANTIGEN Non-Reactive (Nonreactive); HEPATITIS C ANTIBODY Non-Reactive (Nonreactive)
[2024-01-11] VITALS (11 sets, daily range): BP systolic 90–126; BP diastolic 53–73; PULSE 51–120; RESP 16–22; TEMP 97.5–98.6; O2SAT 98–100
[2024-01-11 06:18] LABS: ALBUMIN 2.4 g/dL (3.5-5.0); BILIRUBIN,TOTAL 0.8 mg/dL (0.2-1.0); CREATININE 5.2 mg/dL (0.5-1.3); PHOSPHORUS 6.7 mg/dL (2.5-4.9); POTASSIUM 5.1 mmol/L (3.5-5.1); TOTAL PROTEIN, SERUM 4.9 g/dL (6.0-8.3)
[2024-01-11 06:39] LABS: HEMATOCRIT 24.1 % (42-54); MEAN CORPUSCULAR HEMOGLOBIN 31.1 pg (27.0-33.0); MEAN CORPUSCULAR HGB CONC 31.5 g/dL (32.0-36.0); MEAN CORPUSCULAR VOLUME 98.8 fL (79-99); RED BLOOD CELL COUNT(AUTO) 2.44 MIL/uL (4.50-6.20); RED CELL DISTRIBUTION WIDTH 16.6 % (11.0-15.5)
[2024-01-11 06:44] LABS: WHITE BLOOD COUNT (AUTO) 0.1 K/uL (4.8-10.8)
[2024-01-11] MEDS: atorVAStatin 20 MG TABLET PO SCH (09:42)
[2024-01-11 10:19] LABS: EOSINOPHILS % (MANUAL) 2 % (1-6); LYMPHOCYTES % (MANUAL) 82 % (22-44); MAN.DIFF COMMENT-IMPRESSION MANUAL DIFFERENTIAL; MONOCYTES % (MANUAL) 14 % (2-9); SEGMENTED NEUTROPHILS % 2 % (40-70); TOTAL CELLS COUNTED 50
[2024-01-12] VITALS (52 sets, daily range): BP systolic 84–159; BP diastolic 46–83; PULSE 52–134; RESP 14–24; TEMP 97.3–98.1; O2SAT 94–100
[2024-01-12 05:44] LABS: EOSINOPHILS # (AUTO) 0.01 K/uL (0.00-0.70); EOSINOPHILS % (AUTO) 7.7 % (0.0-8.0); HEMATOCRIT 22.9 % (42-54); LYMPHOCYTES # (AUTO) 0.1 K/uL (1.0-4.8); LYMPHOCYTES % (AUTO) 46.2 % (21.0-51.0); MEAN CORPUSCULAR HEMOGLOBIN 32.1 pg (27.0-33.0); MEAN CORPUSCULAR HGB CONC 33.2 g/dL (32.0-36.0); MEAN CORPUSCULAR VOLUME 96.6 fL (79-99); MONOCYTES % (AUTO) 15.4 % (3.0-13.0); NEUTROPHILS % (AUTO) 30.7 % (40.0-77.0); PLATELET COUNT (AUTO) 13 K/uL (130-400); RED BLOOD CELL COUNT(AUTO) 2.37 MIL/uL (4.50-6.20); RED CELL DISTRIBUTION WIDTH 16.4 % (11.0-15.5)
[2024-01-12 05:47] LABS: WHITE BLOOD COUNT (AUTO) 0.1 K/uL (4.8-10.8)
[2024-01-12 06:41] LABS: BAND NEUTROPHILS % (MANUAL) 8 % (0-2); LYMPHOCYTES % (MANUAL) 42 % (22-44); MAN.DIFF COMMENT-IMPRESSION MANUAL DIFFERENTIAL; MONOCYTES % (MANUAL) 8 % (2-9); SEGMENTED NEUTROPHILS % 42 % (40-70); TOTAL CELLS COUNTED 12
[2024-01-12 06:42] LABS: PLATELET MORPHOLOGY COMMENT MARKED DECREASE
[2024-01-12] MEDS ORDERED: PHARMACY COMMUNICATION MISC SCH (12:00)
[2024-01-12 12:17] LABS: ABG BASE EXCESS 1.5 mmol/L (-2.0-3.0); ABG OXYGEN SATURATION 99.4 % (94.0-98.0); ABG PCO2 56 mmHg (35-48); ABG PH 7.319 (7.350-7.450); CARBON MONOXIDE 0.2 % (0.5-1.5); DEVICE COMMENT LR JOHNNY; HHb 0.6; PO2, ARTERIAL BG 328.2 mmHg (83.0-108.0); VENT MODE, BG NRBM (ROOM AIR)
[2024-01-12] MEDS ORDERED: 0.9%NACL 1000ML 1,000 ML IV SCH (12:30)
[2024-01-12] MEDS ORDERED: NOREPINEPHRIN 4MG/NS 250ML 250 ML IV SCH (13:35)
[2024-01-12] MEDS ORDERED: NOREPINEPHRINE 16MG/NS 250ML PREMIX IV SCH (15:00)
[2024-01-12] MEDS: NOREPINEPHRIN 4MG/NS 250ML 250 ML IV ONE (15:20)
[2024-01-12] MEDS ORDERED: VANCOMYCIN PROTOCOL PER PHARMACY IV SCH (15:30)
[2024-01-12] MEDS: RENAL DOSE IV ONE (15:30)
[2024-01-12] MEDS: VANCOMYCIN 1G/250ML KIT 250 ML IV SCH (23:02)
[2024-01-12] MEDS: ALBUMIN (HUMAN) 25% 50 ML IV.SOLN. IV SCH (23:03)
[2024-01-12] MEDS: fluCONazole 200 MG/NS 100 ML 100 ML IV SCH (23:03)
[2024-01-13] VITALS (39 sets, daily range): BP systolic 79–158; BP diastolic 33–81; PULSE 87–129; RESP 14–33; TEMP 97.6–98.3; O2SAT 99–100
[2024-01-13] MEDS: MEROPENEM 500 MG in 0.9%NACL 100ML 100 ML IV SCH (00:02)
[2024-01-13 04:49] LABS: LYMPHOCYTES % (AUTO) 15.8 % (21.0-51.0); MEAN CORPUSCULAR HEMOGLOBIN 31.4 pg (27.0-33.0); MEAN CORPUSCULAR HGB CONC 31.6 g/dL (32.0-36.0); MEAN CORPUSCULAR VOLUME 99.5 fL (79-99); MONOCYTES % (AUTO) 15.8 % (3.0-13.0); NEUTROPHILS # (AUTO) 0.1 K/uL (1.8-7.7); NEUTROPHILS % (AUTO) 68.4 % (40.0-77.0); RED CELL DISTRIBUTION WIDTH 16.3 % (11.0-15.5)
[2024-01-13 04:56] LABS: HEMATOCRIT 20.9 % (42-54); PLATELET COUNT (AUTO) 8 K/uL (130-400); WHITE BLOOD COUNT (AUTO) 0.2 K/uL (4.8-10.8)
[2024-01-13 05:08] LABS: ALBUMIN 2.2 g/dL (3.5-5.0); BILIRUBIN,TOTAL 1.1 mg/dL (0.2-1.0); CREATININE 4.3 mg/dL (0.5-1.3); MAGNESIUM 1.8 mg/dL (1.80-2.40); PHOSPHORUS 6.1 mg/dL (2.5-4.9); POTASSIUM 4.4 mmol/L (3.5-5.1); TOTAL PROTEIN, SERUM 4.9 g/dL (6.0-8.3)
[2024-01-13] MEDS ORDERED: MEROPENEM 500 MG in 0.9%NACL 100ML 100 ML IV SCH (11:00)
[2024-01-13] MEDS: TBO-FILGRASTIM 480 MCG/0.8 ML ML SQ ONE (19:52)
[2024-01-13] MEDS: [UNRECOGNIZED DRUG - OTHER] IV SCH (23:54)
[2024-01-13] MEDS: MEROPENEM IV SCH (23:54)
[2024-01-13] MEDS: NS IV SCH (23:54)
[2024-01-14] VITALS (27 sets, daily range): BP systolic 113–147; BP diastolic 72–90; PULSE 87–164; RESP 17–20; TEMP 97.6–98.6; O2SAT 99–100
[2024-01-14 03:42] LABS: BASOPHILS # (AUTO) 0.01 K/uL (0.00-0.20); BASOPHILS % (AUTO) 0.9 % (0.0-5.0); HEMATOCRIT 25.1 % (42-54); IMMATURE GRANULOCYTE ABSOLUTE 0.08 K/uL (0-1); LYMPHOCYTES # (AUTO) 0.1 K/uL (1.0-4.8); LYMPHOCYTES % (AUTO) 5.1 % (21.0-51.0); MEAN CORPUSCULAR HEMOGLOBIN 30.6 pg (27.0-33.0); MEAN CORPUSCULAR HGB CONC 32.7 g/dL (32.0-36.0); MEAN CORPUSCULAR VOLUME 93.7 fL (79-99); MONOCYTES # (AUTO) 0.1 K/uL (0.1-1.0); NEUTROPHILS % (AUTO) 81.2 % (40.0-77.0); PLATELET COUNT (AUTO) 30 K/uL (130-400); RED BLOOD CELL COUNT(AUTO) 2.68 MIL/uL (4.50-6.20); RED CELL DISTRIBUTION WIDTH 18.8 % (11.0-15.5); WHITE BLOOD COUNT (AUTO) 1.2 K/uL (4.8-10.8)
[2024-01-14 03:55] LABS: CREATININE 5.5 mg/dL (0.5-1.3); POTASSIUM 4.8 mmol/L (3.5-5.1)
[2024-01-14 04:22] LABS: BAND NEUTROPHILS % (MANUAL) 8 % (0-2); LYMPHOCYTES % (MANUAL) 9 % (22-44); MAN.DIFF COMMENT-IMPRESSION MANUAL DIFFERENTIAL; MONOCYTES % (MANUAL) 8 % (2-9); SEGMENTED NEUTROPHILS % 75 % (40-70); TOTAL CELLS COUNTED 100
[2024-01-14] MEDS ORDERED: 0.9%NACL 1000ML 1,000 ML IV SCH (10:00)
[2024-01-14] MEDS: TBO-FILGRASTIM 480 MCG/0.8 ML ML SQ ONE (12:44)
[2024-01-14] MEDS: sevELAMer HCL 800 MG TABLET PO SCH (17:23)
[2024-01-14] MEDS: VANCOMYCIN 750MG VIAL IVPB SCH (17:23)
[2024-01-14] MEDS: metoPROLOL tartRATE 25 MG TAB PO SCH (20:48)
[2024-01-14] MEDS: atorVAStatin 20 MG TABLET PO SCH (20:48)
[2024-01-14] MEDS ORDERED: VANCOMYCIN 500MG+NS 100ML 100 ML IV SCH (21:00)
[2024-01-14] MEDS: metoPROLOL tartRATE 25 MG TAB PO ONE (22:41)
[2024-01-15] VITALS (15 sets, daily range): BP systolic 110–160; BP diastolic 62–91; PULSE 83–146; RESP 18–20; TEMP 97.4–98.6; O2SAT 98–100
[2024-01-15] MEDS: metoPROLOL tartRATE 25 MG TAB PO SCH (02:27)
[2024-01-15 03:41] LABS: CREATININE 4.5 mg/dL (0.5-1.3)
[2024-01-15 03:42] LABS: HEMATOCRIT 27.6 % (42-54); MEAN CORPUSCULAR HEMOGLOBIN 30.8 pg (27.0-33.0); MEAN CORPUSCULAR HGB CONC 32.2 g/dL (32.0-36.0); MEAN CORPUSCULAR VOLUME 95.5 fL (79-99); NUCLEATED RED BLOOD CELLS 0.8 % (0.0-0.19); PLATELET COUNT (AUTO) 19 K/uL (130-400); RED BLOOD CELL COUNT(AUTO) 2.89 MIL/uL (4.50-6.20); RED CELL DISTRIBUTION WIDTH 18.5 % (11.0-15.5); WHITE BLOOD COUNT (AUTO) 2.5 K/uL (4.8-10.8)
[2024-01-15 03:47] LABS: INR 1.17 (0.85-1.15); PROTHROMBIN TIME 12.5 SEC (9.6-11.6)
[2024-01-15 04:36] LABS: LYMPHOCYTES % (MANUAL) 10 % (22-44); MAN.DIFF COMMENT-IMPRESSION MANUAL DIFFERENTIAL; MONOCYTES % (MANUAL) 7 % (2-9); PLATELET MORPHOLOGY COMMENT MARKED DECREASE; SEGMENTED NEUTROPHILS % 83 % (40-70); TOTAL CELLS COUNTED 100; WBC MORPHOLOGY VACUOLATION 1+
[2024-01-15 12:52] LABS: BASOPHILS # (AUTO) 0.03 K/uL (0.00-0.20); BASOPHILS % (AUTO) 0.9 % (0.0-5.0); HEMATOCRIT 28.8 % (42-54); IMMATURE GRANULOCYTE ABSOLUTE 0.36 K/uL (0-1); LYMPHOCYTES # (AUTO) 0.1 K/uL (1.0-4.8); LYMPHOCYTES % (AUTO) 2.5 % (21.0-51.0); MEAN CORPUSCULAR HEMOGLOBIN 30.6 pg (27.0-33.0); MEAN CORPUSCULAR HGB CONC 30.9 g/dL (32.0-36.0); MONOCYTES # (AUTO) 0.5 K/uL (0.1-1.0); MONOCYTES % (AUTO) 15.3 % (3.0-13.0); NEUTROPHILS # (AUTO) 2.3 K/uL (1.8-7.7); NEUTROPHILS % (AUTO) 70.3 % (40.0-77.0); PLATELET COUNT (AUTO) 51 K/uL (130-400); RED BLOOD CELL COUNT(AUTO) 2.91 MIL/uL (4.50-6.20); RED CELL DISTRIBUTION WIDTH 18.4 % (11.0-15.5); WHITE BLOOD COUNT (AUTO) 3.3 K/uL (4.8-10.8)
[2024-01-15] MEDS: TBO-FILGRASTIM 480 MCG/0.8 ML ML SQ ONE (13:07)
[2024-01-15 13:59] LABS: LYMPHOCYTES % (MANUAL) 2 % (22-44); MAN.DIFF COMMENT-IMPRESSION MANUAL DIFFERENTIAL; MONOCYTES % (MANUAL) 25 % (2-9); PLATELET MORPHOLOGY COMMENT DECREASED; REACTIVE LYMPHOCYTES 1 % (0-0); SEGMENTED NEUTROPHILS % 72 % (40-70); TOTAL CELLS COUNTED 100
[2024-01-15] MEDS: metoPROLOL tartRATE 1 MG/ML 5ML VIAL IV ONE (16:15)
[2024-01-15] MEDS: DEXTROSE 50%-WATER 50 ML DISP.SYRIN IV ONE (21:53)
[2024-01-16] VITALS (9 sets, daily range): BP systolic 91–133; BP diastolic 60–67; PULSE 82–109; RESP 16–20; TEMP 97.5–98; O2SAT 92–100
[2024-01-16] MEDS: DEXTROSE 10%-WATER 1,000 ML IV SCH (00:04)
[2024-01-16] MEDS: DEXTROSE 50%-WATER 50 ML DISP.SYRIN IV PRN (00:38)
[2024-01-16 04:10] LABS: BASOPHILS # (AUTO) 0.05 K/uL (0.00-0.20); BASOPHILS % (AUTO) 1.1 % (0.0-5.0); HEMATOCRIT 27.9 % (42-54); IMMATURE GRANULOCYTE ABSOLUTE 0.56 K/uL (0-1); LYMPHOCYTES # (AUTO) 0.1 K/uL (1.0-4.8); LYMPHOCYTES % (AUTO) 2.1 % (21.0-51.0); MEAN CORPUSCULAR HEMOGLOBIN 31.4 pg (27.0-33.0); MEAN CORPUSCULAR HGB CONC 31.5 g/dL (32.0-36.0); MEAN CORPUSCULAR VOLUME 99.6 fL (79-99); MONOCYTES # (AUTO) 0.3 K/uL (0.1-1.0); MONOCYTES % (AUTO) 7.3 % (3.0-13.0); NEUTROPHILS # (AUTO) 3.4 K/uL (1.8-7.7); NEUTROPHILS % (AUTO) 76.7 % (40.0-77.0); PLATELET COUNT (AUTO) 38 K/uL (130-400); RED CELL DISTRIBUTION WIDTH 17.5 % (11.0-15.5); WHITE BLOOD COUNT (AUTO) 4.4 K/uL (4.8-10.8)
[2024-01-16 04:43] LABS: CARBON DIOXIDE 35 mmol/L (21-32); CHLORIDE 97 mmol/L (101-111); CREATININE 5.5 mg/dL (0.5-1.3); GLOMERULAR FILTR. RATE CALC 10 mL/min (>90); GLUCOSE,RANDOM 87 mg/dL (70-105); PHOSPHORUS 6.3 mg/dL (2.5-4.9); POTASSIUM 4.8 mmol/L (3.5-5.1); SODIUM SERUM 137 mmol/L (136-145)
[2024-01-16 04:44] LABS: UREA NITROGEN, BLOOD 82 mg/dL (7-18)
[2024-01-16] MEDS: droNABinol 2.5 MG CAP PO SCH (09:00)
[2024-01-16] MEDS ORDERED: COMPOUND IV MISC 1 EACH IVSOLN MISC PRN (11:30)
[2024-01-17] VITALS (51 sets, daily range): BP systolic 53–167; BP diastolic 33–97; PULSE 76–124; RESP 18–29; TEMP 96.1–99.1; O2SAT 94–100
[2024-01-17 05:04] LABS: BASOPHILS # (AUTO) 0.02 K/uL (0.00-0.20); BASOPHILS % (AUTO) 0.2 % (0.0-5.0); HEMATOCRIT 32.8 % (42-54); IMMATURE GRANULOCYTE ABSOLUTE 0.89 K/uL (0-1); LYMPHOCYTES # (AUTO) 0.1 K/uL (1.0-4.8); LYMPHOCYTES % (AUTO) 1.5 % (21.0-51.0); MEAN CORPUSCULAR HEMOGLOBIN 31.4 pg (27.0-33.0); MEAN CORPUSCULAR HGB CONC 30.5 g/dL (32.0-36.0); MEAN CORPUSCULAR VOLUME 103.1 fL (79-99); MONOCYTES # (AUTO) 0.8 K/uL (0.1-1.0); MONOCYTES % (AUTO) 8.9 % (3.0-13.0); NEUTROPHILS # (AUTO) 7.4 K/uL (1.8-7.7); NEUTROPHILS % (AUTO) 79.8 % (40.0-77.0); NUCLEATED RED BLOOD CELLS 0.3 % (0.0-0.19); PLATELET COUNT (AUTO) 33 K/uL (130-400); RED BLOOD CELL COUNT(AUTO) 3.18 MIL/uL (4.50-6.20); RED CELL DISTRIBUTION WIDTH 17.5 % (11.0-15.5); WHITE BLOOD COUNT (AUTO) 9.3 K/uL (4.8-10.8)
[2024-01-17 05:24] LABS: ALBUMIN 2.7 g/dL (3.5-5.0); BILIRUBIN,TOTAL 0.9 mg/dL (0.2-1.0); CREATININE 6.8 mg/dL (0.5-1.3); PHOSPHORUS 9.2 mg/dL (2.5-4.9); POTASSIUM 5.2 mmol/L (3.5-5.1); TOTAL PROTEIN, SERUM 5.5 g/dL (6.0-8.3)
[2024-01-17] MEDS ORDERED: ATROPINE 1MG SYG IVP ONE (14:00)
[2024-01-17] MEDS ORDERED: NOREPINEPHRIN 4MG/NS 250ML 250 ML IV PRN (15:00)
[2024-01-17] MEDS ORDERED: FENTanyl CITRate PF 0.05 MG/ML 2,500 MCG in 0.9% NACL 250ML 200 ML IV PRN (15:00)
[2024-01-17 15:18] LABS: ABG BASE EXCESS -4.1 mmol/L (-2.0-3.0); ABG HCO3 21.5 mmol/L (21.0-28.0); ABG OXYGEN SATURATION 99.4 % (94.0-98.0); ABG PCO2 42 mmHg (35-48); ABG PH 7.331 (7.350-7.450); CARBON MONOXIDE 0.3 % (0.5-1.5); DEVICE COMMENT RR EDDY; HHb 0.6; VENT MODE, BG AC-VC (ROOM AIR)
[2024-01-17] MEDS: proPOFol 1000 MG/100 ML IV PRN (15:24)
[2024-01-17 15:25] LABS: HEMATOCRIT 29.6 % (42-54); MEAN CORPUSCULAR HGB CONC 30.7 g/dL (32.0-36.0); MEAN CORPUSCULAR VOLUME 100.7 fL (79-99); NUCLEATED RED BLOOD CELLS 0.6 % (0.0-0.19); RED BLOOD CELL COUNT(AUTO) 2.94 MIL/uL (4.50-6.20); RED CELL DISTRIBUTION WIDTH 17.5 % (11.0-15.5)
[2024-01-17] MEDS ORDERED: phenylEPHRINE HCL 10 MG in 0.9% NACL 250ML 250 ML IV PRN (15:30)
[2024-01-17 15:39] LABS: ALBUMIN 2.4 g/dL (3.5-5.0); BILIRUBIN,TOTAL 0.8 mg/dL (0.2-1.0); CREATININE 6.9 mg/dL (0.5-1.3); MAGNESIUM 2.3 mg/dL (1.80-2.40); POTASSIUM 4.7 mmol/L (3.5-5.1); TOTAL PROTEIN, SERUM 4.7 g/dL (6.0-8.3)
[2024-01-17] MEDS ORDERED: NOREPINEPHRINE BITARTRATE 32 MG in 0.9% NACL 250ML 250 ML IV SCH (16:00)
[2024-01-17] MEDS: hydroCORTisone SOD SUCCINATE 100 MG/2 ML VIAL IV SCH (16:38)
[2024-01-17] MEDS: 0.9% NACL 500ML IV.SOLN 500 ML IV SCH (16:39)
[2024-01-17] MEDS: FENTanyl 1000MCG+NS 100ML 100 ML IV SCH (16:49)
[2024-01-17] MEDS ORDERED: ALBUMIN (HUMAN) 25% 200 ML IV SCH (17:00)
[2024-01-17] MEDS: ALBUMIN (HUMAN) 25% 200 ML IV ONE (17:04)
[2024-01-17] MEDS: phenylEPHRINE HCL 100 MG in 0.9% NACL 250ML 240 ML IV PRN (17:25)
[2024-01-17] MEDS: VANCOMYCIN 1G/250ML KIT 250 ML IV SCH (17:45)
[2024-01-17] MEDS: CHLORHEXIDINE GLUCONATE 15 ML MOUTHWASH MM SCH (18:08)
[2024-01-17] MEDS: IpraTROPium 0.5 MG/2.5 ML INH IH SCH (18:45)
[2024-01-17 18:55] LABS: INR 1.27 (0.85-1.15); PROTHROMBIN TIME 13.5 SEC (9.6-11.6)
[2024-01-17] MEDS: ARTIFICAL TEARS SOL 15 ML OU SCH (20:29)
[2024-01-17] MEDS: ARTIFICIAL TEARS 3.5 GM OINTMENT OD SCH (20:29)
[2024-01-18] VITALS (123 sets, daily range): BP systolic 93–163; BP diastolic 52–117; PULSE 74–100; RESP 12–33; TEMP 97.7–99.3; O2SAT 94–100
[2024-01-18 04:00] LABS: BASOPHILS # (AUTO) 0.01 K/uL (0.00-0.20); BASOPHILS % (AUTO) 0.1 % (0.0-5.0); HEMATOCRIT 25.7 % (42-54); IMMATURE GRANULOCYTE ABSOLUTE 0.89 K/uL (0-1); LYMPHOCYTES # (AUTO) 0.1 K/uL (1.0-4.8); LYMPHOCYTES % (AUTO) 0.7 % (21.0-51.0); MEAN CORPUSCULAR HGB CONC 32.3 g/dL (32.0-36.0); MEAN CORPUSCULAR VOLUME 95.9 fL (79-99); MONOCYTES # (AUTO) 0.6 K/uL (0.1-1.0); MONOCYTES % (AUTO) 5.3 % (3.0-13.0); NEUTROPHILS # (AUTO) 8.8 K/uL (1.8-7.7); NEUTROPHILS % (AUTO) 85.3 % (40.0-77.0); NUCLEATED RED BLOOD CELLS 0.3 % (0.0-0.19); PLATELET COUNT (AUTO) 28 K/uL (130-400); RED BLOOD CELL COUNT(AUTO) 2.68 MIL/uL (4.50-6.20); RED CELL DISTRIBUTION WIDTH 16.9 % (11.0-15.5); WHITE BLOOD COUNT (AUTO) 10.3 K/uL (4.8-10.8)
[2024-01-18 04:01] LABS: ABG BASE EXCESS -2.3 mmol/L (-2.0-3.0); ABG HCO3 21.8 mmol/L (21.0-28.0); ABG OXYGEN SATURATION 97.9 % (94.0-98.0); ABG PCO2 35 mmHg (35-48); ABG PH 7.419 (7.350-7.450); CARBON MONOXIDE 0.3 % (0.5-1.5); HHb 2.1; PO2, ARTERIAL BG 123.9 mmHg (83.0-108.0); VENT MODE, BG ACVC (ROOM AIR)
[2024-01-18 04:14] LABS: BILIRUBIN,TOTAL 1.5 mg/dL (0.2-1.0); TOTAL PROTEIN, SERUM 4.9 g/dL (6.0-8.3)
[2024-01-18 04:29] LABS: ALBUMIN 3.1 g/dL (3.5-5.0); MAGNESIUM 2.3 mg/dL (1.80-2.40); PHOSPHORUS 6.6 mg/dL (2.5-4.9)
[2024-01-18 04:44] LABS: POTASSIUM 6.1 mmol/L (3.5-5.1)
[2024-01-18 05:44] LABS: LYMPHOCYTES % (MANUAL) 4 % (22-44); MONOCYTES % (MANUAL) 3 % (2-9); SEGMENTED NEUTROPHILS % 93 % (40-70); TOTAL CELLS COUNTED 100
[2024-01-18 05:45] LABS: MAN.DIFF COMMENT-IMPRESSION MANUAL DIFFERENTIAL
[2024-01-18 05:46] LABS: PLATELET MORPHOLOGY COMMENT MARKED DECREASE
[2024-01-18] MEDS: CALCIUM GLUC 1GM/10ML VIAL IV ONE (08:02)
[2024-01-18] MEDS: DEXTROSE 50%-WATER 50 ML DISP.SYRIN IV ONE (08:02)
[2024-01-18] MEDS: miDODRine HCL 5 MG TABLET PO SCH (08:03)
[2024-01-18] MEDS: metoPROLOL tartRATE 50 MG TAB PO SCH (08:03)
[2024-01-18] MEDS: INSULIN humuLIN R 100 UNIT/ML 3ML IV ONE (08:18)
[2024-01-18] MEDS: dexmedeTOMIDine 400MCG/NS100ML IV SCH (08:43)
[2024-01-18] MEDS ORDERED: MIDAZOLAM 100MG-0.9% NS 100ML 100ML BAG IV PRN (09:30)
[2024-01-18] MEDS ORDERED: MIDAZOLAM 100MG-0.9% NS 100ML 100ML BAG IV SCH (10:00)
[2024-01-18 13:27] LABS: CREATININE 2.6 mg/dL (0.5-1.3); POTASSIUM 3.1 mmol/L (3.5-5.1)
[2024-01-18] MEDS: INSULIN humuLIN R 100 UNIT/ML 3ML SQ SCH (17:05)
[2024-01-18 17:47] LABS: HEMATOCRIT 25.9 % (42-54); MEAN CORPUSCULAR HEMOGLOBIN 31.3 pg (27.0-33.0); MEAN CORPUSCULAR HGB CONC 32.8 g/dL (32.0-36.0); MEAN CORPUSCULAR VOLUME 95.2 fL (79-99); NUCLEATED RED BLOOD CELLS 0.3 % (0.0-0.19); RED BLOOD CELL COUNT(AUTO) 2.72 MIL/uL (4.50-6.20); RED CELL DISTRIBUTION WIDTH 17.2 % (11.0-15.5); WHITE BLOOD COUNT (AUTO) 11.6 K/uL (4.8-10.8)
[2024-01-18 20:29] LABS: ABG BASE EXCESS 0.4 mmol/L (-2.0-3.0); ABG HCO3 25.6 mmol/L (21.0-28.0); ABG OXYGEN SATURATION 96.7 % (94.0-98.0); ABG PCO2 43 mmHg (35-48); ABG PH 7.389 (7.350-7.450); DEVICE COMMENT LR RN; PO2, ARTERIAL BG 88.8 mmHg (83.0-108.0)
[2024-01-19] VITALS (86 sets, daily range): BP systolic 61–167; BP diastolic 28–102; PULSE 68–115; RESP 9–51; TEMP 99; O2SAT 92–100
[2024-01-19 01:26] LABS: INFLUENZA TYPE A Negative For Type A (NEGATIVE); INFLUENZA TYPE B Negative For Type B (NEGATIVE)
[2024-01-19 01:27] LABS: COVID19 (SARS ANTIGEN RAPID) PRESUMPTIVE NEGATIVE (NEGATIVE)
[2024-01-19 04:25] LABS: ALBUMIN 2.9 g/dL (3.5-5.0); BILIRUBIN,TOTAL 1.4 mg/dL (0.2-1.0); CREATININE 5.3 mg/dL (0.5-1.3); MAGNESIUM 2.2 mg/dL (1.80-2.40); PHOSPHORUS 5.8 mg/dL (2.5-4.9); TOTAL PROTEIN, SERUM 4.9 g/dL (6.0-8.3)
[2024-01-19 04:39] LABS: BASOPHILS # (AUTO) 0.09 K/uL (0.00-0.20); BASOPHILS % (AUTO) 0.7 % (0.0-5.0); HEMATOCRIT 26.8 % (42-54); IMMATURE GRANULOCYTE ABSOLUTE 0.96 K/uL (0-1); LYMPHOCYTES # (AUTO) 0.2 K/uL (1.0-4.8); LYMPHOCYTES % (AUTO) 1.6 % (21.0-51.0); MEAN CORPUSCULAR HEMOGLOBIN 30.9 pg (27.0-33.0); MEAN CORPUSCULAR HGB CONC 33.2 g/dL (32.0-36.0); MEAN CORPUSCULAR VOLUME 93.1 fL (79-99); MONOCYTES # (AUTO) 0.9 K/uL (0.1-1.0); MONOCYTES % (AUTO) 7.3 % (3.0-13.0); NEUTROPHILS # (AUTO) 10.5 K/uL (1.8-7.7); NEUTROPHILS % (AUTO) 82.8 % (40.0-77.0); NUCLEATED RED BLOOD CELLS 0.4 % (0.0-0.19); PLATELET COUNT (AUTO) 74 K/uL (130-400); RED BLOOD CELL COUNT(AUTO) 2.88 MIL/uL (4.50-6.20); RED CELL DISTRIBUTION WIDTH 16.9 % (11.0-15.5); WHITE BLOOD COUNT (AUTO) 12.7 K/uL (4.8-10.8)
[2024-01-19 06:19] LABS: LYMPHOCYTES % (MANUAL) 4 % (22-44); MONOCYTES % (MANUAL) 8 % (2-9); REACTIVE LYMPHOCYTES 1 % (0-0); SEGMENTED NEUTROPHILS % 87 % (40-70); TOTAL CELLS COUNTED 100
[2024-01-19 06:20] LABS: MAN.DIFF COMMENT-IMPRESSION MANUAL DIFFERENTIAL; WBC MORPHOLOGY VACUOLATION 1+
[2024-01-19 06:23] LABS: PLATELET MORPHOLOGY COMMENT DECREASED
[2024-01-19 10:27] LABS: ABG BASE EXCESS -4.1 mmol/L (-2.0-3.0); ABG HCO3 20.2 mmol/L (21.0-28.0); ABG PCO2 35 mmHg (35-48); ABG PH 7.379 (7.350-7.450); VENT MODE, BG PS 10 (ROOM AIR)
[2024-01-19 11:18] LABS: INR 1.54 (0.85-1.15); PROTHROMBIN TIME 16.1 SEC (9.6-11.6)
[2024-01-19] MEDS ORDERED: NOREPINEPHRINE 16MG/NS 250ML 250 ML IV ONE (15:38)
[2024-01-19] MEDS ORDERED: ATROPINE 1MG SYG IVP ONE (15:53)
[2024-01-20] MEDS ORDERED: 0.9%NACL 10ML VIAL IV SCH (09:00)
== END 2024-01-19 18:58 | DRG 871 ==
LOC: EDH 10:56 → EDHIP 10:57 → 3DH 12:28 → 2AH 01-12 12:15 → 2BH 01-12 14:55 → 2DH 01-13 14:19 → 3DH 01-16 23:19 → 2CH 01-17 14:20
PROVIDERS: ADMIT Internal Medicine Hematology & Oncology; ATTEND Internal Medicine Hematology & Oncology
PROC: 30233R1 Transfusion of Nonautologous Platelets into Peripheral Vein, Percutaneous Approach (ICD-10-PCS; 2024-01-09)
PROC: 30233N1 Transfusion of Nonautologous Red Blood Cells into Peripheral Vein, Percutaneous Approach (ICD-10-PCS; 2024-01-09)
PROC: 30233N1 Transfusion of Nonautologous Red Blood Cells into Peripheral Vein, Percutaneous Approach (ICD-10-PCS; principal; 2024-01-13)
PROC: 0BH17EZ Insertion of Endotracheal Airway into Trachea, Via Natural or Artificial Opening (ICD-10-PCS; 2024-01-17)
PROC: 5A1945Z Respiratory Ventilation, 24-96 Consecutive Hours (ICD-10-PCS; 2024-01-17)
PROC: 5A09357 Assistance with Respiratory Ventilation, Less than 24 Consecutive Hours, Continuous Positive Airway Pressure (ICD-10-PCS; 2024-01-17)
PROC: 0W9930Z Drainage of Right Pleural Cavity with Drainage Device, Percutaneous Approach (ICD-10-PCS; 2024-01-19)
PROC: B54NZZA Ultrasonography of Left Upper Extremity Veins, Guidance (ICD-10-PCS; 2024-01-19)
PROC: 05HC33Z Insertion of Infusion Device into Left Basilic Vein, Percutaneous Approach (ICD-10-PCS; 2024-01-19)
PROC: 5A1D70Z Performance of Urinary Filtration, Intermittent, Less than 6 Hours Per Day (ICD-10-PCS; 2024-01-19)
PROC: 5A12012 Performance of Cardiac Output, Single, Manual (ICD-10-PCS; 2024-01-19)
DX: A41.9 Sepsis, unspecified organism (principal); D61.810 Antineoplastic chemotherapy induced pancytopenia; J96.02 Acute respiratory failure with hypercapnia; N18.6 End stage renal disease; J96.01 Acute respiratory failure with hypoxia; G92.8 Other toxic encephalopathy; R65.21 Severe sepsis with septic shock; I26.99 Other pulmonary embolism without acute cor pulmonale; J15.9 Unspecified bacterial pneumonia; C83.30 Diffuse large B-cell lymphoma, unspecified site; I50.40 Unspecified combined systolic (congestive) and diastolic (congestive) heart failure; I13.2 Hypertensive heart and chronic kidney disease with heart failure and with stage 5 chronic kidney disease, or end stage renal disease; C81.90 Hodgkin lymphoma, unspecified, unspecified site; G93.1 Anoxic brain damage, not elsewhere classified; J93.9 Pneumothorax, unspecified; I46.9 Cardiac arrest, cause unspecified; E87.5 Hyperkalemia; I48.91 Unspecified atrial fibrillation; E78.5 Hyperlipidemia, unspecified; E03.9 Hypothyroidism, unspecified; E88.09 Other disorders of plasma-protein metabolism, not elsewhere classified; J45.909 Unspecified asthma, uncomplicated; T45.1X5A Adverse effect of antineoplastic and immunosuppressive drugs, initial encounter; E83.52 Hypercalcemia; Z20.822 Contact with and (suspected) exposure to COVID-19; I70.0 Atherosclerosis of aorta; Z66 Do not resuscitate; E16.2 Hypoglycemia, unspecified; Z99.2 Dependence on renal dialysis; Z79.01 Long term (current) use of anticoagulants; Z86.73 Personal history of transient ischemic attack (TIA), and cerebral infarction without residual deficits; I25.2 Old myocardial infarction
CPT/HCPCS: 31500; 36415; 36430; 36600; 70450; 71045; 80048; 80053; 80202; 82435; 82533; 82550; 82803; 82947; 82948; 83605; 83735; 84100; 84132; 84145; 84295; 84439; 84443; 84481; 84484; 84550; 85018; 85025; 85027; 85610; 85730; 86704; 86706; 86803; 86850; 86900; 86901; 86923; 87040; 87071; 87205; 87340; 87426; 87804; 90935; 92950; 93005; 93306; 94002; 94003; 94150; 94640; 94660; 94664; C1729; C1894; G0378; J0171; J0461; J0612; J1100; J1200; J1450; J1720; J1815; J2185; J2371; J2543; J2704; J3010; J3370; J3490; J7050; J7070; P9016; P9034; P9046; P9047; Q0167; A9900; C1750; J1447